=== PATIENT | female | born 1940 | race Caucasian/White ===

== ENCOUNTER 2023-03-22 05:43 | Observation (INO) ==
--- NOTE | 2023-02-20 08:53 | PAT Medication Instructions ---
Medication Instructions Date of Service February 20, 2023 Home Medications aspirin 81 mg tablet,delayed release 81 mg PO QAM atorvastatin 40 mg tablet 40 mg PO HS hydrochlorothiazide 50 mg tablet 50 mg PO QAM insulin degludec 100 unit/mL (3 mL) subcutaneous pen (Tresiba FlexTouch U-100 insulin) 12 unit subcut QPM insulin lispro 100 unit/mL subcutaneous pen 2 unit subcut BID liraglutide 0.6 mg/0.1 mL (18 mg/3 mL) subcutaneous pen injector (Victoza 2-Felipe) 1.8 mg subcut QAM lisinopril 2.5 mg tablet 2.5 mg PO QAM magnesium oxide 250 mg PO QAM metformin 500 mg tablet 1,000 mg PO BID pioglitazone 30 mg tablet 30 mg PO QAM potassium gluconate 595 mg (99 mg) tablet 595 mg PO QAM DO NOT take the morning of surgery hydrochlorothiazide 50 mg tablet 50 mg PO QAM insulin lispro 100 unit/mL subcutaneous pen 2 unit subcut BID liraglutide 0.6 mg/0.1 mL (18 mg/3 mL) subcutaneous pen injector (Victoza 2-Feilpe) 1.8 mg subcut QAM lisinopril 2.5 mg tablet 2.5 mg PO QAM magnesium oxide 250 mg PO QAM metformin 500 mg tablet 1,000 mg PO BID pioglitazone 30 mg tablet 30 mg PO QAM potassium gluconate 595 mg (99 mg) tablet 595 mg PO QAM Take morning of surgery With a small sip of water, OTHERWISE NOTHING TO EAT OR DRINK AFTER MIDNIGHT: aspirin 81 mg tablet,delayed release 81 mg PO QAM (unless directed otherwise by surgeon) Take evening before surgery atorvastatin 40 mg tablet 40 mg PO HS insulin degludec 100 unit/mL (3 mL) subcutaneous pen (Tresiba FlexTouch U-100 insulin) 12 unit subcut QPM insulin lispro 100 unit/mL subcutaneous pen 2 unit subcut BID metformin 500 mg tablet 1,000 mg PO BID Other Notes If you have any questions please call us at [phone] or [phone] or [phone] or [phone]
--- NOTE | 2023-02-20 13:50 | Anesthesiology Consultation ---
Date of Service February 20, 2023 Assessment & Plan (1) Encounter for pre-operative examination: - check BSG am DOS. - Case discussed in detail with Dr. Garcia who advised patient is acceptable to proceed with surgery as scheduled without further evaluation from his standpoint. - Outpatient joint assessment: Patient is currently scheduled for inpatient pathway. If re-evaluated and patient/surgeon requests outpatient pathway, patient is not recommended candidate for outpatient joint program from anest hesia standpoint. Chart Review Chart Review: Acceptable Risk for Surgery and Patient seen in Pre Admission Testing Teaching & Discussion Pre-Anesthesia Teaching/Discussion Notes: Instructed NPO after midnight before surgery, except medications with 15 cc of water. Medication instructions provided according to the PAT guidelines. History Surgery Operation Date: 03/22/23 11:05 Proposed Procedures p Right Total Knee Arthroplasty - Lazaro Livingston DO Height/Weight Height: 5 ft 3.5 in Weight: 101.4 kg Allergies Allergy/AdvReac Type Severity Reaction Status Date / Time cephalexin [From Keflex] Allergy Mild Rash Verified 02/17/23 15:50 Medications Home Medications Medication Instructions Recorded Confirmed Last Taken aspirin 81 mg tablet,delayed 81 mg PO QAM 02/17/23 02/17/23 Unknown release atorvastatin 40 mg tablet 40 mg PO HS 02/17/23 02/17/23 Unknown hydrochlorothiazide 50 mg tablet 50 mg PO QAM 02/17/23 02/17/23 Unknown insulin degludec 100 unit/mL (3 12 unit subcut QPM 02/17/23 02/17/23 Unknown mL) subcutaneous pen (Tresiba FlexTouch U-100 insulin) insulin lispro 100 unit/mL 2 unit subcut BID 02/17/23 02/17/23 Unknown subcutaneous pen liraglutide 0.6 mg/0.1 mL (18 mg/3 1.8 mg subcut QAM 02/17/23 02/17/23 Unknown mL) subcutaneous pen injector (Victoza 2-Felipe) lisinopril 2.5 mg tablet 2.5 mg PO QAM 02/17/23 02/17/23 Unknown magnesium oxide 250 mg PO QAM 02/17/23 02/17/23 Unknown metformin 500 mg tablet 1,000 mg PO BID 02/17/23 02/17/23 Unknown pioglitazone 30 mg tablet 30 mg PO QAM 02/17/23 02/17/23 Unknown potassium gluconate 595 mg (99 mg) 595 mg PO QAM 02/17/23 02/17/23 Unknown tablet Past Medical History Medical History (Updated 02/20/23 @ 13:48 by Shameka Bustamante PA-C) Diabetes mellitus, type 2 IDDM GERD (gastroesophageal reflux disease) rare, diet related History of kidney stones 10 yrs ago Hyperlipidemia Hypertension controlled, stable per pt Irregular heart beat heart racing at times noted-denies lightheadedness/dizziness; ongoing x several yrs, notes previous cardiology work-up and was d/c by cardiology Peripheral neuropathy feet Patient denies h/o stroke, seizures, heart attack, heart failure, blood clots/DVTs or blood transfusions. Exercise / Class Metabolic Activity III < 4 Walking/Shop/Light housework (denies chest discomfort or shortness of breath with usual activities) Past Family History Family History (Updated 02/17/23 @ 16:02 by Della Barrera RN) Other No family history of adverse response to anesthesia Past Surgical History Surgical History (Updated 02/17/23 @ 16:02 by Della Barrera RN) History of appendectomy History of arthroscopy rt shoulder rt hip History of cataract surgery rt/left History of cholecystectomy History of colonoscopy History of cystoscopy History of esophagogastroduodenoscopy (EGD) History of lithotripsy History of removal of ovarian cyst History of tonsillectomy and adenoidectomy History of tooth extraction Past Anesthesia History No Hx of Anesthesia Complications and No Family Hx of Anesthesia Complications History of PONV No Hx of PONV and No Hx of Motion Sickness Social History Smoking Status: Never smoker Do You Dip or Chew Tobacco: No Hx Alcohol Use: No substance use type: does not use Review of Systems Snoring, denies witnessed apneas. Patient denies chest pain, shortness of breath, dyspnea on exertion, fever, chills, cough, wheezing, or palpitations. Physical Exam Vital Signs Vitals BP 107/71 P 83 TEMP 97.7 SP02 95% on RA RESP 18 Physical Patient resting comfortably in chair in no acute distress, alert and oriented, responding appropriately throughout visit Full cervical extension range of motion without pain TMD 3.5 finger breadths Mallampati Score 2 Dentition: intact, denies chipped or loose teeth, caps/crowns, implants or bridges Lungs: normal respiratory effort. Good air movement, clear throughout to auscultation, no adventitious breath sounds Cardiac: regular rate and rhythm, no murmurs noted Carotid arteries: negative bruit bilat Lab Results Anesthesia Preop Results Results Anesthesia Widget: WBC 9.09 K/ul (4.8-10.8) 02/20/23 Hgb 11.7 g/dl (12.0-16.0) L 02/20/23 Hct 36.1 % (37.0-47.0) L 02/20/23 Plt 258 K/uL (130-400) 02/20/23 PT 11.0 Seconds (9.0-12.0) 02/20/23 PTT 27.2 Seconds (21.0-31.0) 02/20/23 INR 1.0 (0.9-1.1) 02/20/23 Urine Color Yellow 02/20/23 Urine Appearance Clear (Clear) 02/20/23 Urine pH 5.0 (4.5-7.5) 02/20/23 Urine Specific [place] 1.023 (1.000-1.030) 02/20/23 Urine Protein Negative (Negative) 02/20/23 Urine Glucose (UA) Negative (Negative) 02/20/23 Urine Ketones Trace (Negative) H 02/20/23 Urine Blood Negative (Negative) 02/20/23 Urine Nitrite Negative (Negative) 02/20/23 Urine Bilirubin Negative (Negative) 02/20/23 Urine Urobilinogen Negative (Negative) 02/20/23 Urine Leukocyte Esterase 2+ (Negative) H 02/20/23 Urine WBC (Auto) >30 /hpf (0-5) H 02/20/23 Urine RBC (Auto) 5-10 /hpf (0-4) H 02/20/23 Urine Hyaline Casts (Auto) 1-5 /lpf (0-5) 02/20/23 Urine Epithelial Cells (Auto) >30 /lpf (0-5) H 02/20/23 Urine Bacteria (Auto) Negative (Negative) 02/20/23 Blood Type A Positive 02/20/23 Antibody Screen NEGATIVE 02/20/23 Testing Laboratory Results Surgeon's office notified of abnormal UA. Electrocardiogram Date: 02/20/23 Sinus rhythm with 1st degree AV block, rate 84 bpm Chest X-Ray Date: 02/20/23 No acute chest disease
--- NOTE | 2023-03-08 09:44 | History & Physical Report ---
Date of Service March 08, 2023 date of surgery: 03/22/23 Procedure: Right Total Knee Arthroplasty Surgeon: Lazaro Livingston Assessment & Plan (1) Arthritis of right knee: Plan: Further care discussed with patient and at this point in time has failed conservative measures and would like to proceed with a right total knee replacement. Plan on discharge will be home with home health physical therapy. DVT prophylaxiswith TEDs, SCDs and will also place on aspirin 81 mg p.o. b.i.d. for a month postop. Patient will have follow up appointment in our office two weeks post op for staple/suture removal and re-evaluation. Patient otherwise has no other questions or concerns. The risks and benefits have been discussed including, but not limited to, risk of infection, nerve injury, stiffness, loss of motion, failure to improve, etc. Reasonable outcomes and options of treatment were discussed. An explanation of appropriate alternatives to the procedure that may be advantageous were discussed and their risks and benefits, as well as the risks and benefits of not proceeding with treatment. I offered to answer any additional inquiries concerning the treatment involved. All the patient's questions were answered. The patient is agreeable, understanding of the treatment plan and alternatives, and wishes to proceed with the treatment plan. History of Present Illness Chief Complaint: Right knee pain Primary Care Provider: NO PCP Roopa is a pleasant 82-year-old female who presented for preop evaluation prior to upcoming right total knee arthroplasty. She has had pain in his knee for over 10 years now which is gradually worsened and is now affecting her daily activities. She undergone previous cortisone injection as well as viscosupplementation without any relief. She tried manager ent brace as well as physical therapy. Rated her current pain is 7 out of 10. This point time is failed conservative measures like to proceed with right total knee replacement Allergies Allergy/AdvReac Type Severity Reaction Status Date / Time cephalexin [From Keflex] Allergy Mild Rash Verified 02/17/23 15:50 Home Medications Medication Instructions Recorded Confirmed Type aspirin 81 mg tablet,delayed 81 mg PO QAM 02/17/23 02/17/23 History release atorvastatin 40 mg tablet 40 mg PO HS 02/17/23 02/17/23 History hydrochlorothiazide 50 mg tablet 50 mg PO QAM 02/17/23 02/17/23 History insulin degludec 100 unit/mL (3 12 unit subcut QPM 02/17/23 02/17/23 History mL) subcutaneous pen (Tresiba FlexTouch U-100 insulin) insulin lispro 100 unit/mL 2 unit subcut BID 02/17/23 02/17/23 History subcutaneous pen liraglutide 0.6 mg/0.1 mL (18 mg/3 1.8 mg subcut QAM 02/17/23 02/17/23 History mL) subcutaneous pen injector (Victoza 2-Felipe) lisinopril 2.5 mg tablet 2.5 mg PO QAM 02/17/23 02/17/23 History magnesium oxide 250 mg PO QAM 02/17/23 02/17/23 History metformin 500 mg tablet 1,000 mg PO BID 02/17/23 02/17/23 History pioglitazone 30 mg tablet 30 mg PO QAM 02/17/23 02/17/23 History potassium gluconate 595 mg (99 mg) 595 mg PO QAM 02/17/23 02/17/23 History tablet Past Med/Surg History Medical History Diabetes mellitus, type 2 IDDM GERD (gastroesophageal reflux disease) rare, diet related History of kidney stones 10 yrs ago Hyperlipidemia Hypertension controlled, stable per pt Irregular heart beat heart racing at times noted-denies lightheadedness/dizziness; ongoing x several yrs, notes previous cardiology work-up and was d/c by cardiology Peripheral neuropathy feet Surgical History History of appendectomy History of arthroscopy rt shoulder rt hip History of cataract surgery rt/left History of cholecystectomy History of colonoscopy History of cystoscopy History of esophagogastroduodenoscopy (EGD) History of lithotripsy History of removal of ovarian cyst History of tonsillectomy and adenoidectomy History of tooth extraction Family History Other No family history of adverse response to anesthesia Social History Smoking Status: Never smoker Second Hand Exposure: No; Do You Dip or Chew Tobacco: No; Hx Alcohol Use: No Preferred Language: Icelandic Regulatory Administrator Required: No Beliefs That Will Affect Care: None Current Living Situation: Spouse Feels Safe at Home: Yes Assistive Devices: Glasses Review of Systems Review of Systems: All systems reviewed & are unremarkable except as noted in HPI & below Constitutional: no fever, no chills and no sweats Respiratory: no cough and no dyspnea Cardiovascular: no chest pain, no dyspnea and no orthopnea Gastrointestinal: no abdominal pain, no nausea and no vomiting Musculoskeletal: as per Subjective / HPI Physical Exam Physical Exam: HT 5ft 3.5in WT: 101.4kg Constitutional: WD/WN, vitals as above no acute distress Respiratory: normal respiratory effort, lungs clear to auscultation no respiratory distress, no labored breathing and does not use accessory muscles Cardiovascular: RRR, no murmur, no edema Gastrointestinal (Abdomen): normal bowel sounds, soft, nontender, no hepatosplenomegaly Musculoskeletal: Knee: + knee abnormal to inspection (RIGHT KNEE: ), + effusion (+1 effusion), + limited ROM of knee (ROM 0/3/110), + knee ROM with crepitation, + joint line tenderness (medial joint line) and + Rupal's sign positive; no deformity, no skin erythema, no ecchymosis, no valgus laxity, no varus laxity, anterior drawer test negative, Saúl's sign negative and pivot shift test negative Results & Data Results & Data Diagnostic Findings Right Knee X-ray: Right knee series showing advanced degenerative changes to the right knee, narrowing of the medial compartment and patello-femoral joint with patellar spurring noted, findings showing joint space narrowing of the medial compartment and patello-femoral joint, osteophyte formation and subchondral sclerosis noted. overall varus alignment. no acute bony pathology noted.
[2023-03-22] MEDS ORDERED: LR 60ML/HR IV SCH (06:00)
[2023-03-22] MEDS ORDERED: ACETAMINOPHEN 500 MG TAB PO SCH (06:00)
[2023-03-22] MEDS ORDERED: ROPIVACAINE 0.5% HCL/PF 150 MG, BUPIVACAINE 0.75% MPF 20 ML, EPINEPHrine 30MG/30ML (OR ... INSTIL SCH (06:00)
[2023-03-22] MEDS ORDERED: METOCLOPRAMIDE HCL 10 MG TABLET PO SCH (06:00)
[2023-03-22] MEDS ORDERED: FAMOTIDINE 20 MG TAB PO SCH (06:00)
[2023-03-22] MEDS ORDERED: TRANEXAMIC ACID 1,000 MG **IV Intra-op IV SCH (06:00)
[2023-03-22] MEDS ORDERED: TRANEXAMIC ACID 1,000 MG **IV Pre-op IV SCH (06:00)
[2023-03-22] MEDS ORDERED: GABAPENTIN 600 MG DOSE PO SCH (06:00)
[2023-03-22] MEDS ORDERED: LR 500ML BOLUS, THEN 15ML/HR IV SCH (06:00)
[2023-03-22] MEDS ORDERED: CeleBREX 200 MG CAP PO SCH (06:00)
[2023-03-22] MEDS ORDERED: VANCOMYCIN HCL 1,500 MG in SODIUM CHLORIDE 0.9% 500 ML IV SCH ×2 (06:00→20:00)
[2023-03-22] MEDS ORDERED: BUPIVACAINE 0.25% PF 30 ML VIAL ONE (06:30)
[2023-03-22] MEDS ORDERED: BUPIVACAINE 0.5 % 5 MG/1 ML PF 10ML VIAL ONE (06:30)
[2023-03-22] MEDS ORDERED: ATROPINE SULFATE 0.1 MG/ML 10ML SYR IV PRN (06:36)
[2023-03-22] MEDS ORDERED: ePHEDrine sulfate 50 MG/ML AMP IV PRN (06:36)
[2023-03-22] MEDS ORDERED: fentaNYL citrate PF 100 MCG/2 ML VIAL IV PRN (06:36)
[2023-03-22] MEDS ORDERED: ONDANSETRON INJ 2 MG/ML 2 ML VIAL IV PRN ×2 (06:36→12:28)
[2023-03-22] MEDS ORDERED: fentaNYL citrate PF 100 MCG/2 ML VIAL ONE (06:38)
[2023-03-22] MEDS ORDERED: PROPOFOL IV EMULSION 10 MG/ML 20 ML VIAL IV ONE (06:38)
[2023-03-22] MEDS ORDERED: MIDAZOLAM HCL 1 MG/ML 2ML VIAL ONE (06:38)
[2023-03-22] MEDS ORDERED: ORTHO JOINT ANESTHETIC ONE (07:06)
--- NOTE | 2023-03-22 07:17 | History & Physical Bridge Note ---
Date of Service March 22, 2023 History & Physical Bridge Note I have examined the patient, rPatient with complaints of DJD left knee observed via x-ray and clinical examination we will plan for intra-articular injection Marcaine lidocaine and Depo-Medrol 80 mg left knee at the time of her right knee replacementeviewed the History & Physical and in the interval since the performance of the History & Physical I have noted the following changes of clinical significance:
[2023-03-22] MEDS ORDERED: BUPIVACAINE 0.5 % 5 MG/1 ML MPF 30ML VIAL ONE (07:42)
[2023-03-22] MEDS ORDERED: LIDOCAINE 1% LOCAL 20 ML VIAL ONE (07:42)
[2023-03-22] MEDS ORDERED: methylPREDNISolone acetate 80 MG/ML VIAL ONE (07:43)
[2023-03-22] MEDS ORDERED: ONDANSETRON INJ 2 MG/ML 2 ML VIAL ONE (08:19)
--- NOTE | 2023-03-22 08:58 | Operative Report ---
Post Operative Report Pre & Post Diagnosis Operation Date: 03/22/23 07:15 Pre-Op Diagnosis: Right Knee Osteoarthritis Post-Op Diagnosis: Right Knee Osteoarthritis I identified the patient and participated in the time-out.: Yes Procedure Operation Date: 03/22/23 07:15 Actual Procedures p Right Total Knee Arthroplasty(Right)Utilizing [employer] 2 patient-matched total knee arthroplasty size femur 6 tibia 4 patella 32 poly 9 arpit Livingston DO Surgeon Lazaro Livingston DO [employer] Darnell GAY Estimated Blood Loss 80 Findings Consistent with Post-Op Diagnosis Patient presents with severe end-stage tricompartmental DJD right knee nonresponse to conservative management with eburnated [id number] varus alignment 10 degree flexion contracture subchondral cystic changes marginal osteophytes Specimens Bone and cartilage Drains Medium bore Hemovac Anesthesia Type MAC Spinal Regional Complications none Disposition Accompanied Patient To Recovery: No Disposition: Recovery Room Indications Patient presents with severe end-stage tricompartmental DJD failed attempted conservative management with physical therapy anti-inflammatories relative rest activity modification corticosteroid injection viscosupplementation Description of Procedure After proper prepping and draping of the Right lower extremity anterior midline incision was made over the region of the extensor extensor mechanism after meticulous hemostasis was obtained and maintained in subcutaneous tissues a medial parapatellar incision was made Patient had a venous tourniquet had subcutaneous bleeding about 80 cc during the case and Aquamantys was used the tourniquet was deflated and reinflated and still continued with some mild oozing which stopped during the caseThe patella was subluxed lateralward the medial lateral gutter were cleaned from any hypertrophic synovitis and scar tissue of the distal femoral block was placed and the distal femoral osteotomy cut was made subsequently the chamfers anterior and posterior osteotomy cuts were made utilizing the 4-in-1 block the tibia was subsequently subluxed anteriorward medial and ateral meniscal remnants were excised in their entirety remnants of the anterior and posterior cruciate ligaments were excised in their entirety excellent exposure of the proximal tibia was obtained the tibial osteotomy guide was placed on the proximal tibial osteotomy cut was made once again the knee was irrigated with copious amounts of sterile saline solution the patella was subsequently everted lateralward thickened scar tissue around the patella was removed the patella was subsequently cut utilizing a freehand technique and was drilled prepared for final preparation and placement of patella socially flexion-extension gaps were checked and the equal and symmetric trials were placed to the appropriate femoral and tibial trials with poly-spacer being placed for equal flexion and extension gaps and full range of motion including extension to 0 and flexion to 140 the trial components after having been taken to recovery range of motion was subsequently removed meticulous hemostasis was obtained and maintained subsequently a knee block injection of joint cocktail including ropivacaine 0.5% 150 mg. Bupivacaine 0.5% epinephrine 1-200,030 mL's toradol 30 mg dexamethasone 4 mg ketamine 10 mg clonidine 100 micrograms normal saline solution 30 mg was infiltrated into the soft tissues of the posterior knee medial lateral gutters and periosteal synovium special attention was paid to protect neurovascular structures at all times subsequently trial components having been removed the knee was irrigated with sterile saline solution. debris was removed the proximal tibia was subsequently prepared and was made ready for the placement of the tibial component tibial component was also cemented and tamped into position the femoral component was subsequently placed and cemented in the position the patellar component was subsequently cemented in position because hemostasis once again obtained and maintained wound having been thoroughly irrigated with debridement and debridement lavage was performed as well as a medial parapatellar incision closed with #1 Vicryl in interrupted fashion subcutaneous was closed with #2 Vicryl skin was closed with skin clips. PA-C was necessary for prepping and drapping as well as wound closure of deep fascia Sub cutaneous tissue and skin and was necessary for the case. A sterile compressive dressing was placed patient was taken to recovery in stable condition of report dictated by Miki I attest to the content of the Intraoperative Record and any orders documented therein. Any exceptions are noted below.Due to the complex nature of the procedure, the entire surgery was performed with the operational assistance of Darnell GAY. The physician assistant primary care, under direct supervision, was involved in the actual performance of all aspects of the surgical procedure including hemostasis, tissue retraction and incision, instrument management, patient positioning, and wound closure. I attest to the content of the Intraoperative Record and any orders documented therein. Any exceptions are noted below.
--- NOTE | 2023-03-22 09:07 | Operative Report ---
Post Operative Report Pre & Post Diagnosis Operation Date: 03/22/23 07:15 Pre-Op Diagnosis: Right Knee Osteoarthritis Post-Op Diagnosis: Right Knee Osteoarthritis I identified the patient and participated in the time-out.: Yes Procedure Operation Date: 03/22/23 07:15 Actual Procedures p Right Total Knee Arthroplasty(Right) - Lazaro Livingston DO Surgeon Lazaro Livingston DO [employer] Setter Darnell GAY Estimated Blood Loss 80 Findings Consistent with Post-Op Diagnosis Specimens None none Description of Procedure Patient also had DJD left knee injection of 80 mg Depo-Medrol 2 cc 1% plain lidocaine 2 cc of quarter percent plain Marcaine was injected under sterile conditions into the left knee joint for osteoarthritis I attest to the content of the Intraoperative Record and any orders documented therein. Any exceptions are noted below.
--- NOTE | 2023-03-22 10:18 | XRay Report ---
TWO VIEWS RIGHT KNEE CLINICAL HISTORY: Postoperative examination. FINDINGS: AP and crosstable lateral portable views of the right knee are obtained. A right knee arthr oplasty is in near anatomic alignment. There has been undersurface remodeling of the patella. No acut e fracture is seen. There are expected postoperative changes around the knee including skin clips, a surgical drain, soft tissue edema, and subcutaneous gas. IMPRESSION: Expected postoperative changes status post right knee arthroplasty. No acute fracture is seen. ACT 112: Negative or not required by law. Electronically signed by: Ted Olguin M.D. 03/22/2023 10:17 AM
[2023-03-22] MEDS ORDERED: MAGNESIUM HYDROXIDE SUSP 30 ML UDC PO PRN (12:28)
[2023-03-22] MEDS ORDERED: bisacodyL 10 MG SUPP PR PRN (12:28)
[2023-03-22] MEDS ORDERED: PHARMACY GLYCEMIC MGMT CONSULT PRN (12:28)
[2023-03-22] MEDS ORDERED: HYDROmorphone INJ 0.5 MG/0.5 ML SYR IV PRN (12:28)
[2023-03-22] MEDS ORDERED: oxyCODONE HCL IR 5 MG TAB (IMMEDIATE RELEASE) PO PRN (12:28)
[2023-03-22] MEDS ORDERED: diphenhydrAMINE 50 MG/ML VIAL IV PRN (12:28)
[2023-03-22] MEDS ORDERED: VANCOMYCIN CONSULT ACTIVE PRN (12:28)
[2023-03-22] MEDS ORDERED: NALOXONE HCL 0.4 MG/1 ML VIAL/CARP IV PRN (12:28)
[2023-03-22] MEDS: SODIUM CHLORIDE 0.9% 1,000 ML IV SCH (13:26)
[2023-03-22] MEDS: ACETAMINOPHEN 500 MG TAB PO SCH ×2 (13:27→21:05)
--- NOTE | 2023-03-22 13:52 | Anesthesiology Progress Note ---
Date of Service March 22, 2023 Anesthesia Post Procedure Vital Signs Vital Signs: Temp Pulse Pulse Resp BP BP Pulse Ox 03/22/23 12:30 03/22/23 13:23 36.7 C 91 H 16 110/66 98 03/22/23 12:20 36.4 C L 90 16 99/63 L 98 03/22/23 12:50 89 18 109/70 100 03/22/23 11:50 84 12 107/53 L 99 03/22/23 11:35 83 18 121/58 L 94 03/22/23 11:20 36.4 C L 88 13 107/50 L 92 03/22/23 11:05 89 20 115/54 L 94 03/22/23 10:50 36.0 C L 89 13 116/74 92 03/22/23 10:40 83 15 130/77 94 03/22/23 10:30 84 12 116/52 L 94 03/22/23 10:20 86 17 103/59 L 92 03/22/23 10:10 84 13 121/58 L 95 03/22/23 10:00 82 12 117/58 L 92 03/22/23 09:50 80 11 L 114/54 L 96 03/22/23 09:44 36.0 C L 84 18 113/54 L 97 03/22/23 06:30 36.6 C 90 18 136/78 98 O2 Del Method O2 Flow Rate 03/22/23 12:30 Nasal Cannula 2 03/22/23 13:23 Nasal Cannula 1 03/22/23 12:20 Nasal Cannula 2 03/22/23 12:50 Nasal Cannula 2 03/22/23 11:50 Nasal Cannula 2 03/22/23 11:35 Nasal Cannula 2 03/22/23 11:20 Room Air 03/22/23 11:05 Room Air 03/22/23 10:50 Room Air 03/22/23 10:40 Room Air 03/22/23 10:30 Room Air 03/22/23 10:20 Room Air 03/22/23 10:10 Room Air 03/22/23 10:00 Room Air 03/22/23 09:50 Room Air 03/22/23 09:44 Room Air 03/22/23 06:30 Room Air Transfer of Care Handoff Completed per policy Notes Mental Status: alert / awake / arousable and participated in evaluation Patient Amnestic to Procedure: Yes Nausea / Vomiting: adequately controlled Pain: adequately controlled Airway Patency, RR, SpO2: stable & adequate BP & HR: stable & adequate Hydration State: stable & adequate Neuraxial Anesthesia: was administered and sensory block is resolving Anesthetic Complications: no major complications apparent and Pt Satisfied with anesthetic care
[2023-03-22] MEDS ORDERED: NovoLIN-N (NPH) PER UNIT CHARGE SQ ONE (14:00)
[2023-03-22] MEDS ORDERED: GLUCOSE 10 TAB/TUBE PO PRN (14:00)
[2023-03-22] MEDS ORDERED: CARBOHYDRATES FOR HYPOGLYCEMIA PO PRN (14:00)
[2023-03-22] MEDS ORDERED: GLUCAGON FOR INJ 1 MG VIAL IM PRN (14:00)
[2023-03-22] MEDS ORDERED: DEXTROSE 50% 50 ML SYRINGE IV PRN (14:00)
[2023-03-22] MEDS ORDERED: GLUCOSE 40% GEL 15 GM TUBE PO PRN (14:00)
[2023-03-22] MEDS: INSULIN ASPART PER UNIT CHARGE SC SCH ×3 (14:17→21:14)
--- NOTE | 2023-03-22 14:35 | Hospitalist Consultation ---
Date of Consultation March 22, 2023 Assessment & Plan (1) Status post total knee replacement: VTE/Bowel/Pain management per primary orthopedic team (2) Hypertension: Hold lisinopril/HCTZ given current BP (3) Diabetes mellitus, type 2: Hemoglobin A1C 7.2 in February per patient recollection. No pre-op clearance uploaded. HbA1C with AM labs Pharmacy consulted for glycemic control while inpatient Hold home regimen of metformin, Tresiba 12 units QPM, Humalog 2units BID, Victoza 1.8mg SQ daily and Actos. did not take anything this morning. Do not anticipate diabetes medication changes on discharge (4) Hyperlipidemia: Continue atorvastatin No history of [place] or stroke History of Present Illness Reason for Consultation: post op medical management Attending Physician: Lazaro Livingston DO History of Present Illness Roopa Greenfield is an 82 year old female POD#0 right total knee arthroplasty. Estimated blood loss 80ml. No questions or concerns from patient post operatively. No dizziness. Doxycycline 100mg PO BID 11/15, no longer taking - removed from medrec. She is unclear on her BP medications or what she took this morning. Allergies Allergy/AdvReac Type Severity Reaction Status Date / Time cephalexin [From Keflex] Allergy Mild Rash Verified 03/22/23 06:06 Home Medications Medication Instructions Recorded Confirmed Type aspirin 81 mg tablet,delayed 81 mg PO QAM 02/17/23 03/22/23 History release atorvastatin 40 mg tablet (Lipitor) 40 mg PO HS 02/17/23 03/22/23 History hydrochlorothiazide 50 mg tablet 50 mg PO QAM 02/17/23 03/22/23 History insulin degludec 100 unit/mL (3 12 unit subcut QPM 02/17/23 03/22/23 History mL) subcutaneous pen (Tresiba FlexTouch U-100 insulin) insulin lispro 100 unit/mL 2 unit subcut BID 02/17/23 03/22/23 History subcutaneous pen liraglutide 0.6 mg/0.1 mL (18 mg/3 1.8 mg subcut QAM 02/17/23 03/22/23 History mL) subcutaneous pen injector (Victoza 2-Felipe) lisinopril 2.5 mg tablet 2.5 mg PO QAM 02/17/23 03/22/23 History magnesium oxide 250 mg PO QAM 02/17/23 03/22/23 History metformin 500 mg tablet 1,000 mg PO BID 02/17/23 03/22/23 History pioglitazone 30 mg tablet (Actos) 30 mg PO QAM 02/17/23 03/22/23 History potassium gluconate 595 mg (99 mg) 595 mg PO QAM 02/17/23 03/22/23 History tablet acetaminophen 325 mg tablet 325 mg PO QID PRN Pain 03/22/23 03/22/23 History (Tylenol) acetaminophen 500 mg tablet 1,000 mg PO Q8 14 days #84 tabs 03/22/23 Rx (Tylenol Extra Strength) aspirin 81 mg tablet,delayed 81 mg PO BID 30 days #60 tabs 03/22/23 Rx release polyethylene glycol 3350 17 gram 17 g PO DAILY PRN constipation #5 03/22/23 Rx oral powder packet (Miralax) ea Patient History Medical History (Updated 03/22/23 @ 14:29 by Nirmal Jose MD) Diabetes mellitus, type 2 IDDM GERD (gastroesophageal reflux disease) rare, diet related History of kidney stones 10 yrs ago Hyperlipidemia Hypertension controlled, stable per pt Irregular heart beat heart racing at times noted-denies lightheadedness/dizziness; ongoing x several yrs, notes previous cardiology work-up and was d/c by cardiology Peripheral neuropathy feet Surgical History (Updated 03/22/23 @ 14:32 by Nirmal Jose MD) History of appendectomy History of arthroscopy rt shoulder rt hip History of cataract surgery rt/left History of cholecystectomy History of colonoscopy History of cystoscopy History of esophagogastroduodenoscopy (EGD) History of lithotripsy History of removal of ovarian cyst History of tonsillectomy and adenoidectomy History of tooth extraction Family History Other No family history of adverse response to anesthesia Social History Smoking Status: Never smoker Second Hand Exposure: No; Do You Dip or Chew Tobacco: No; Hx Alcohol Use: No Preferred Language: Frisian [place] Hand Required: No Beliefs That Will Affect Care: None Current Living Situation: Spouse Feels Safe at Home: Yes Safety Concerns: Feels Safe At This Time Assistive Devices: Glasses Review of Systems Review of Systems: All systems reviewed & are unremarkable except as noted in HPI & below Physical Exam Constitutional: WD/WN, vitals as above ENMT: external ear and nose normal, oropharynx normal Respiratory: normal respiratory effort, lungs clear to auscultation Cardiovascular: RRR, no murmur, no edema Gastrointestinal (Abdomen): normal bowel sounds, soft, nontender, no hepatosplenomegaly Musculoskeletal: NV intact distal to operation site Neurologic: awake; not confused Psychiatric: A+Ox3, euthymic affect Results & Data Results & Data Vital Signs (Past 12 Hours) Vital Signs Temp Pulse Pulse Resp BP BP Pulse Ox 03/22/23 12:30 03/22/23 14:18 36.4 C L 89 16 112/70 97 03/22/23 13: 36.7 C 91 H 16 110/66 98 03/22/23 12:20 36.4 C L 90 16 99/63 L 98 03/22/23 12:50 89 18 109/70 100 03/22/23 11:50 84 12 107/53 L 99 03/22/23 11:35 83 18 121/58 L 94 03/22/23 11:20 36.4 C L 88 13 107/50 L 92 03/22/23 11:05 89 20 115/54 L 94 03/22/23 10:50 36.0 C L 89 13 116/74 92 03/22/23 10:40 83 15 130/77 94 03/22/23 10:30 84 12 116/52 L 94 03/22/23 10:20 86 17 103/59 L 92 03/22/23 10:10 84 13 121/58 L 95 03/22/23 10:00 82 12 117/58 L 92 03/22/23 09:50 80 11 L 114/54 L 96 03/22/23 09:44 36.0 C L 84 18 113/54 L 97 03/22/23 06:30 36.6 C 90 18 136/78 98 O2 Del Method O2 Flow Rate 03/22/23 12:30 Nasal Cannula 2 03/22/23 14:18 Nasal Cannula 1 03/22/23 13:23 Nasal Cannula 1 03/22/23 12:20 Nasal Cannula 2 03/22/23 12:50 Nasal Cannula 2 03/22/23 11:50 Nasal Cannula 2 03/22/23 11:35 Nasal Cannula 2 03/22/23 11:20 Room Air 03/22/23 11:05 Room Air 03/22/23 10:50 Room Air 03/22/23 10:40 Room Air 03/22/23 10:30 Room Air 03/22/23 10:20 Room Air 03/22/23 10:10 Room Air 03/22/23 10:00 Room Air 03/22/23 09:50 Room Air 03/22/23 09:44 Room Air 03/22/23 06:30 Room Air Laboratory Results No pre-op CMP/BMP in EHR therefore will take now PG Care Time/CCT Total # of Minutes Spent Total Time Spent with Patient: Total time spent is greater than 50% in coordination of care (as documented) at patient's floor/unit and/or counseling patient: Coding Level of Care Code 97728 IN/OBS CONSULT LVL 4,60M Diagnoses Status post total knee replacement Z96.659 Hypertension I10 Diabetes mellitus, type 2 E11.9 Hyperlipidemia E78.5
--- NOTE | 2023-03-22 14:36 | Pharmacy Report ---
Pharmacy Glycemic Short Note 2 - Date of Service March 22, 2023 - Glycemic Short BSG Results (Last 24 hours): 03/22/23 03/22/23 03/22/23 06:29 09:47 12:27 POC Glucose 107 H 164 H 179 H OUTPATIENT ANTIDIABETIC REGIMEN: * metformin 1000 mg PO BIDM * Actos 30 mg PO daily * HbA1C ordered ASSESSMENT: * Ms Greenfield is an 82 y/o F with a PMH of T2DM who presents for RTKA plus Depo Medrol injection in L knee. * Patient's preop BSG was 107 mg/dL and postop was 179 mg/dL. * Due to steroids, give NPH 30 units SQ x 1. Due to IA nature of injection, steroid hyperglycemia course may be prolonged. * Novolog weight based stress of 2. PLAN FOR INPATIENT GLYCEMIC CONTROL: * Hold outpatient oral diabetes medications * Basal insulin * NPH 30 units SQ x 1 with subsequent dosing determined by blood sugars * Bolus insulin * NovoLog per scale ACHS or Q6hrs while NPO * Goal Range: Low 110 mg/dL - High 140 mg/dL * Correction Factor: 20 mg/dL/unit * Nutritional / Prandial insulin per carb ratio of 1 unit per 7 grams CHO consumed
[2023-03-22 16:48] LABS: Mean Corpuscular Hemoglobin 28.5 pg (25.0-34.0); Mean Corpuscular Hgb Conc 32.3 g/dL (32.0-36.0); Mean Corpuscular Volume 88.3 fL (80.0-100.0); Mean Platelet Volume 10.3 fL (9.4-12.4); Platelet Count 200 K/uL (130-400); RDW Coefficient of Variation 13.8 % (11.5-14.5); RDW Standard Deviation 44.2 fL (36.4-46.3); Red Blood Count 3.51 M/uL (4.20-5.40); White Blood Count 11.46 K/ul (4.8-10.8)
[2023-03-22] MEDS ORDERED: metFORMIN HCL 500 MG TAB PO SCH (17:00)
[2023-03-22 17:02] LABS: Albumin Globulin Ratio 1.3 (0.9-2); Albumin Level 3.4 gm/dl (3.4-5.0); BUN Creatinine Ratio 29.2 (10-20); Bilirubin,Total 0.7 mg/dl (0.2-1.0); Calcium 8.5 mg/dl (8.6-10.3); Creatinine Clr Calc Pharmacy 52.2 ml/min; Est GFR (African American) 63.8 ml/min; Est GFR (Non-African American) 55.1 ml/min; Globulin 2.6 gm/dl (2.5-4.0); Potassium 4.9 mmol/L (3.5-5.1)
[2023-03-22 17:37] LABS: Basophils # (auto) 0.03 K/uL (0.00-0.20); Basophils % (auto) 0.3 %; Immature Granulocytes # (auto) 0.06 K/uL (0.01-0.20); Immature Granulocytes % (auto) 0.5 %; Lymphocytes # (auto) 0.52 K/uL (1.20-3.40); Lymphocytes % (auto) 4.5 %; Monocytes # (auto) 0.14 K/uL (0.11-0.59); Monocytes % (auto) 1.2 %; Neutrophils # (auto) 10.71 K/uL (1.40-6.50); Neutrophils % (auto) 93.5 %
[2023-03-22] MEDS ORDERED: SODIUM CHLORIDE 0.9% 1,000 ML IV ONE (19:48)
[2023-03-22] MEDS ORDERED: ATORVASTATIN 40 MG TAB PO SCH (21:00)
[2023-03-22] MEDS ORDERED: SENNA 8.6 MG TAB PO SCH (21:00)
[2023-03-22] MEDS: DOCUSATE SODIUM 100 MG CAP PO SCH (21:06)
[2023-03-22] MEDS: ASPIRIN 81 MG ECTAB PO SCH (21:06)
[2023-03-23] MEDS: SODIUM CHLORIDE 0.9% 1,000 ML IV SCH (01:47)
[2023-03-23] MEDS: ACETAMINOPHEN 500 MG TAB PO SCH (05:27)
[2023-03-23 06:44] LABS: Hematocrit (blood only) 28.5 % (37.0-47.0); Hemoglobin 9.6 g/dl (12.0-16.0); Mean Corpuscular Hemoglobin 29.4 pg (25.0-34.0); Mean Corpuscular Hgb Conc 33.7 g/dL (32.0-36.0); Mean Corpuscular Volume 87.2 fL (80.0-100.0); Mean Platelet Volume 10.6 fL (9.4-12.4); Platelet Count 213 K/uL (130-400); RDW Coefficient of Variation 13.8 % (11.5-14.5); Red Blood Count 3.27 M/uL (4.20-5.40); White Blood Count 19.58 K/ul (4.8-10.8)
[2023-03-23 07:11] LABS: BUN Creatinine Ratio 35.6 (10-20); Calcium 7.7 mg/dl (8.6-10.3); Creatinine Clr Calc Pharmacy 55.6 ml/min; Est GFR (Non-African American) 59.5 ml/min; Potassium 4.7 mmol/L (3.5-5.1)
[2023-03-23 07:18] LABS: Estimated Average Glucose 166 mg/dl; Hemoglobin A1C 7.4 % (4.5-5.6)
[2023-03-23] MEDS: ASPIRIN 81 MG ECTAB PO SCH (08:07)
[2023-03-23] MEDS: DOCUSATE SODIUM 100 MG CAP PO SCH (08:07)
[2023-03-23] MEDS: INSULIN ASPART PER UNIT CHARGE SC SCH ×2 (08:11→12:24)
[2023-03-23] MEDS ORDERED: MAGNESIUM OXIDE 400 MG TAB PO SCH (09:00)
[2023-03-23] MEDS ORDERED: LANTUS PER UNIT CHARGE SC ONE (09:00)
[2023-03-23] MEDS ORDERED: lisinopril 2.5 MG TAB PO SCH (09:00)
[2023-03-23] MEDS ORDERED: NON-FORMULARY MEDICATION (Pioglitazone [Actos] 30 mg Tablet) PO SCH (09:00)
[2023-03-23] MEDS ORDERED: hydroCHLOROthiazide 25 MG TAB PO SCH (09:00)
[2023-03-23] MEDS ORDERED: MULTIVITAMIN TAB PO SCH (09:00)
[2023-03-23] MEDS ORDERED: POTASSIUM CHLORIDE CRTAB 20 MEQ TABCR PO SCH (09:00)
--- NOTE | 2023-03-23 09:51 | Hospitalist Progress Note ---
Date of Service March 23, 2023 Assessment & Plan (1) Status post total knee replacement: Plan: VTE/Bowel/Pain management per primary orthopedic team (2) Hypertension: Plan: Hold lisinopril/HCTZ on discharge. Follow up with PCP (3) Diabetes mellitus, type 2: Plan: Hemoglobin A1C 7.2 in February per patient recollection. No pre-op clearance uploaded. HbA1C with AM labs Pharmacy consulted for glycemic control while inpatient Hold home regimen of metformin, Tresiba 12 units QPM, Humalog 2units BID, Victoza 1.8mg SQ daily and Actos. did not take anything this morning. No change to diabetes regimen recommended on discharge (4) Hyperlipidemia: Plan: Continue atorvastatin No history of [place] or stroke Plan Post op labs and vital signs reviewed. Thank you for the consult. Since the patient is a planned discharge we will sign off at this time. Discharge instructions/medications changed to reflect mild post operative hypotension as above but as long as she is asymptomatic she can be discharged. Please contact [facility] hospitalist presentation designer if you would like us to review patient or for any questions or concerns. Admission and Anticipated Discharge Date Admission Date: March 22, 2023 Anticipated date of discharge: 03/23/23 Subjective No acute concerns or questions. No dizziness on standing per patient. Orthopedics planning on discharging later today. Review of Systems Review of Systems: All systems reviewed & are unremarkable except as noted in HPI & below Physical Exam Constitutional: WD/WN, vitals as above Respiratory: normal respiratory effort, lungs clear to auscultation Cardiovascular: RRR, no murmur, no edema Gastrointestinal (Abdomen): normal bowel sounds, soft, nontender, no hepatosplenomegaly Neurologic: moves all extremities and awake; not confused Psychiatric: A+Ox3, euthymic affect Results & Data Results & Data Vital Signs (Past 12 Hours) Vital Signs Temp Pulse Pulse Resp BP Pulse Ox O2 Del Method 03/23/23 07:31 Room Air 03/23/23 07:16 36.4 C L 75 16 97/60 L 97 Room Air 03/23/23 05:25 94 H 103/67 03/23/23 03:21 36.4 C L 76 16 92/60 L 93 Room Air 03/22/23 23:04 36.3 C L 83 18 112/71 96 Room Air Laboratory Results Abnormal lab results 1003/22/23 03/22/23 Range/Units 16:28 16:33 16:33 WBC 11.46 H (4.8-10.8) K/ul RBC 3.51 L (4.20-5.40) M/uL Hgb 10.0 L (12.0-16.0) g/dl Hct 31.0 L (37.0-47.0) % Neut # (Auto) 10.71 H (1.40-6.50) K/uL Lymph # (Auto) 0.52 L (1.20-3.40) K/uL Sodium 133 L (136-145) mmol/L BUN 28 H (6-23) mg/dl BUN/Creatinine Ratio 29.2 H (10-20) Glucose 207 H (70-99(Fasting)) mg/dl POC Glucose 193 H (70-99) mg/dl Hemoglobin A1c (4.5-5.6) % Calcium 8.5 L (8.6-10.3) mg/dl 03/22/23 03/23/23 03/23/23 Range/Units 20:32 06:11 06:11 WBC 19.58 H (4.8-10.8) K/ul RBC 3.27 L (4.20-5.40) M/uL Hgb 9.6 L (12.0-16.0) g/dl Hct 28.5 L (37.0-47.0) % Neut # (Auto) (1.40-6.50) K/uL Lymph # (Auto) (1.20-3.40) K/uL Sodium (136-145) mmol/L BUN (6-23) mg/dl BUN/Creatinine Ratio (10-20) Glucose (70-99(Fasting)) mg/dl POC Glucose 146 H (70-99) mg/dl Hemoglobin A1c 7.4 H (4.5-5.6) % Calcium (8.6-10.3) mg/dl 03/23/23 03/23/23 03/23/23 Range/Units 06:11 07:42 11:55 WBC (4.8-10.8) K/ul RBC (4.20-5.40) M/uL Hgb (12.0-16.0) g/dl Hct (37.0-47.0) % Neut # (Auto) (1.40-6.50) K/uL Lymph # (Auto) (1.20-3.40) K/uL Sodium 135 L (136-145) mmol/L BUN 32 H (6-23) mg/dl BUN/Creatinine Ratio 35.6 H (10-20) Glucose 224 H (70-99(Fasting)) mg/dl POC Glucose 242 H 206 H (70-99) mg/dl Hemoglobin A1c (4.5-5.6) % Calcium 7.7 L (8.6-10.3) mg/dl PG Care Time/CCT Total # of Minutes Spent Total Time Spent with Patient: Total time spent is greater than 50% in coordination of care (as documented) at patient's floor/unit and/or counseling patient: Coding Level of Care Code 23799 SUB INP/OBS CARE 06/29MIN Diagnoses Status post total knee replacement Z96.659 Hypertension I10 Diabetes mellitus, type 2 E11.9 Hyperlipidemia E78.5
--- NOTE | 2023-03-23 10:08 | Orthopedic Progress Note ---
Date of Service March 23, 2023 Assessment & Plan (1) Status post right knee replacement: Plan: 82 yo female stable POD #1 s/p right TKA 1. Med management 2. DVT prophylaxis- ASA, SCDs 3. PT/OT 4. D/C planning- home w/ HH Admission and Anticipated Discharge Date Admission Date: March 22, 2023 Subjective Pt resting in chair, pain controlled, denies complaints Physical Exam Physical Exam: Dressing/drain in place, FORREST in place, toes mobile, NVI Results & Data Vital Signs (Past 12 Hours) Vital Signs Temp Pulse Pulse Resp BP Pulse Ox O2 Del Method 03/23/23 07:31 Room Air 03/23/23 07:16 36.4 C L 75 16 97/60 L 97 Room Air 03/23/23 05:25 94 H 103/67 03/23/23 03:21 36.4 C L 76 16 92/60 L 93 Room Air 03/22/23 23:04 36.3 C L 83 18 112/71 96 Room Air Laboratory Results 03/23/23 03/23/23 03/23/23 Range/Units 07:42 06:11 06:11 WBC 19.58 H (4.8-10.8) K/ul RBC 3.27 L (4.20-5.40) M/uL Hgb 9.6 L (12.0-16.0) g/dl Hct 28.5 L (37.0-47.0) % MCV 87.2 (80.0-100.0) fL MCH 29.4 (25.0-34.0) pg MCHC 33.7 (32.0-36.0) g/dL RDW Std Deviation 44.0 (36.4-46.3) fL RDW Coeff of Mildred 13.8 (11.5-14.5) % Plt Count 213 (130-400) K/uL MPV 10.6 (9.4-12.4) fL Immature Gran % (Auto) % Neut % (Auto) % Lymph % (Auto) % Gregg % (Auto) % Eos % (Auto) % Baso % (Auto) % Neut # (Auto) (1.40-6.50) K/uL Lymph # (Auto) (1.20-3.40) K/uL Gregg # (Auto) (0.11-0.59) K/uL Eos # (Auto) (0.00-0.50) K/uL Baso # (Auto) (0.00-0.20) K/uL Immature Gran # (Auto) (0.01-0.20) K/uL Sodium 135 L (136-145) mmol/L Potassium 4.7 (3.5-5.1) mmol/L Chloride 105 (98-107) mmol/L Carbon Dioxide 24 (21-32) mmol/L Anion Gap 6 (3-11) BUN 32 H (6-23) mg/dl Creatinine 0.90 (0.6-1.2) mg/dl Est Cr Clr Drug Dosing 55.6 ml/min Est GFR ( Amer) 69.0 ml/min Est GFR (Non-Af Amer) 59.5 ml/min BUN/Creatinine Ratio 35.6 H (10-20) Glucose 224 H (70-99(Fasting)) mg/dl POC Glucose 242 H (70-99) mg/dl Estimat Average Glucose mg/dl Hemoglobin A1c (4.5-5.6) % Calcium 7.7 L (8.6-10.3) mg/dl Total Bilirubin (0.2-1.0) mg/dl AST (13-39) U/L ALT (7-52) U/L Alkaline Phosphatase (34-104) U/L Total Protein (6.0-8.3) gm/dl Albumin (3.4-5.0) gm/dl Globulin (2.5-4.0) gm/dl Albumin/Globulin Ratio (0.9-2) 03/23/23 03/22/23 03/22/23 Range/Units 06:11 20:32 16:33 WBC (4.8-10.8) K/ul RBC (4.20-5.40) M/uL Hgb (12.0-16.0) g/dl Hct (37.0-47.0) % MCV (80.0-100.0) fL MCH (25.0-34.0) pg MCHC (32.0-36.0) g/dL RDW Std Deviation (36.4-46.3) fL RDW Coeff of Mildred (11.5-14.5) % Plt Count (130-400) K/uL MPV (9.4-12.4) fL Immature Gran % (Auto) % Neut % (Auto) % Lymph % (Auto) % Gregg % (Auto) % Eos % (Auto) % Baso % (Auto) % Neut # (Auto) (1.40-6.50) K/uL Lymph # (Auto) (1.20-3.40) K/uL Gregg # (Auto) (0.11-0.59) K/uL Eos # (Auto) (0.00-0.50) K/uL Baso # (Auto) (0.00-0.20) K/uL Immature Gran # (Auto) (0.01-0.20) K/uL Sodium 133 L (136-145) mmol/L Potassium 4.9 (3.5-5.1) mmol/L Chloride 101 (98-107) mmol/L Carbon Dioxide 26 (21-32) mmol/L Anion Gap 6 (3-11) BUN 28 H (6-23) mg/dl Creatinine 0.96 (0.6-1.2) mg/dl Est Cr Clr Drug Dosing 52.2 ml/min Est GFR ( Amer) 63.8 ml/min Est GFR (Non-Af Amer) 55.1 ml/min BUN/Creatinine Ratio 29.2 H (10-20) Glucose 207 H (70-99(Fasting)) mg/dl POC Glucose 146 H (70-99) mg/dl Estimat Average Glucose 166 mg/dl Hemoglobin A1c 7.4 H (4.5-5.6) % Calcium 8.5 L (8.6-10.3) mg/dl Total Bilirubin 0.7 (0.2-1.0) mg/dl AST 19 (13-39) U/L ALT 13 (7-52) U/L Alkaline Phosphatase 56 (34-104) U/L Total Protein 6.0 (6.0-8.3) gm/dl Albumin 3.4 (3.4-5.0) gm/dl Globulin 2.6 (2.5-4.0) gm/dl Albumin/Globulin Ratio 1.3 (0.9-2) 03/22/23 03/22/23 03/22/23 Range/Units 16:33 16:28 12:27 WBC 11.46 H (4.8-10.8) K/ul RBC 3.51 L (4.20-5.40) M/uL Hgb 10.0 L (12.0-16.0) g/dl Hct 31.0 L (37.0-47.0) % MCV 88.3 (80.0-100.0) fL MCH 28.5 (25.0-34.0) pg MCHC 32.3 (32.0-36.0) g/dL RDW Std Deviation 44.2 (36.4-46.3) fL RDW Coeff of Mildred 13.8 (11.5-14.5) % Plt Count 200 (130-400) K/uL MPV 10.3 (9.4-12.4) fL Immature Gran % (Auto) 0.5 % Neut % (Auto) 93.5 % Lymph % (Auto) 4.5 % Gregg % (Auto) 1.2 % Eos % (Auto) 0.0 % Baso % (Auto) 0.3 % Neut # (Auto) 10.71 H (1.40-6.50) K/uL Lymph # (Auto) 0.52 L (1.20-3.40) K/uL Gregg # (Auto) 0.14 (0.11-0.59) K/uL Eos # (Auto) 0.00 (0.00-0.50) K/uL Baso # (Auto) 0.03 (0.00-0.20) K/uL Immature Gran # (Auto) 0.06 (0.01-0.20) K/uL Sodium (136-145) mmol/L Potassium (3.5-5.1) mmol/L Chloride (98-107) mmol/L Carbon Dioxide (21-32) mmol/L Anion Gap (3-11) BUN (6-23) mg/dl Creatinine (0.6-1.2) mg/dl Est Cr Clr Drug Dosing ml/min Est GFR ( Amer) ml/min Est GFR (Non-Af Amer) ml/min BUN/Creatinine Ratio (10-20) Glucose (70-99(Fasting)) mg/dl POC Glucose 193 H 179 H (70-99) mg/dl Estimat Average Glucose mg/dl Hemoglobin A1c (4.5-5.6) % Calcium (8.6-10.3) mg/dl Total Bilirubin (0.2-1.0) mg/dl AST (13-39) U/L ALT (7-52) U/L Alkaline Phosphatase (34-104) U/L Total Protein (6.0-8.3) gm/dl Albumin (3.4-5.0) gm/dl Globulin (2.5-4.0) gm/dl Albumin/Globulin Ratio (0.9-2)
--- NOTE | 2023-03-23 10:31 | Operative Report ---
Post Operative Report Pre & Post Diagnosis Operation Date: 03/22/23 07:15 Pre-Op Diagnosis: Right Knee Osteoarthritis Post-Op Diagnosis: Right Knee Osteoarthritis I identified the patient and participated in the time-out.: Yes Procedure Operation Date: 03/22/23 07:15 Actual Procedures p Right Total Knee Arthroplasty(Right) - Lazaro Livingston DO Surgeon Lazaro Livingston DO Water Project Engineer Darnell GAY Estimated Blood Loss 80 Findings Consistent with Post-Op Diagnosis Severe end-stage tricompartmental DJD varus alignment subchondral sclerosis marginal osteophytes Specimens Bone and cartilage Drains Medium bore Hemovac Anesthesia Type MAC Spinal Regional Complications none Disposition Accompanied Patient To Recovery: No Disposition: Recovery Room Indications Patient resents with severe end-stage tricompartmental DJD right knee failed attempted conservative management including injections physical therapy relative rest Description of Procedure After proper prepping and draping of the Right lower extremity anterior midline incision was made over the region of the extensor extensor mechanism after meticulous hemostasis was obtained and maintained in subcutaneous tissues a medial parapatellar incision was made The patella was subluxed lateralward the medial lateral gutter were cleaned from any hypertrophic synovitis and scar tissue of the distal femoral block was placed and the distal femoral osteotomy cut was made subsequently the chamfers anterior and posterior osteotomy cuts were made utilizing the 4-in-1 block the tibia was subsequently subluxed anteriorward medial and ateral meniscal remnants were excised in their entirety remnants of the anterior and posterior cruciate ligaments were excised in their entirety excellent exposure of the proximal tibia was obtained the tibial osteotomy guide was placed on the proximal tibial osteotomy cut was made once again the knee was irrigated with copious amounts of sterile saline solution the patella was subsequently everted lateralward thickened scar tissue around the patella was removed the patella was subsequently cut utilizing a freehand technique and was drilled prepared for final preparation and placement of patella socially flexion-extension gaps were checked and the equal and symmetric trials were placed to the appropriate femoral and tibial trials with poly-spacer being placed for equal flexion and extension gaps and full range of motion including extension to 0 and flexion to 140 the trial components after having been taken to recovery range of motion was subsequently removed meticulous hemostasis was obtained and maintained subsequently a knee block injection of joint cocktail including ropivacaine 0.5% 150 mg. Bupivacaine 0.5% epinephrine 1-200,030 mL's toradol 30 mg dexamethasone 4 mg ketamine 10 mg clonidine 100 micrograms normal saline solution 30 mg was infiltrated into the soft tissues of the posterior knee medial lateral gutters and periosteal synovium special attention was paid to protect neurovascular structures at all times subsequently trial components having been removed the knee was irrigated with sterile saline solution. debris was removed the proximal tibia was subsequently prepared and was made ready for the placement of the tibial component tibial component was also cemented and tamped into position the femoral component was subsequently placed and cemented in the position the patellar component was subsequently cemented in position because hemostasis once again obtained and maintained wound having been thoroughly irrigated with debridement and debridement lavage was performed as well as a medial parapatellar incision closed with #1 Vicryl in interrupted fashion subcutaneous was closed with #2 Vicryl skin was closed with skin clips. PA-C was necessary for prepping and drapping as well as wound closure of deep fascia Sub cutaneous tissue and skin and was necessary for the case. A sterile compressive dressing was placed patient was taken to recovery in stable condition of report dictated by Miki I attest to the content of the Intraoperative Record and any orders documented therein. Any exceptions are noted below.Due to the complex nature of the procedure, the entire surgery was performed with the operational assistance of [Darnell GAY]. The cafe assistant, under direct supervision, was involved in the actual performance of all aspects of the surgical procedure including hemostasis, tissue retraction and incision, instrument management, patient positioning, and wound closure. I attest to the content of the Intraoperative Record and any orders documented therein. Any exceptions are noted below.
--- NOTE | 2023-03-24 16:17 | Discharge Summary ---
Date of Service March 24, 2023 Admission HPI Per Admitting Provider Roopa is a pleasant 82-year-old female who presented for preop evaluation prior to upcoming right total knee arthroplasty. She has had pain in his knee for over 10 years now which is gradually worsened and is now affecting her daily activities. She undergone previous cortisone injection as well as viscosupplementation without any relief. She tried vessel traffic officer brace as well as physical therapy. Rated her current pain is 7 out of 10. This point time is failed conservative measures like to proceed with right total knee replacement Admission Exam Per Admitting Provider Physical Exam: HT 5ft 3.5in WT: 101.4kg Constitutional: WD/WN, vitals as above no acute distress Respiratory: normal respiratory effort, lungs clear to auscultation no respiratory distress, no labored breathing and does not use accessory muscles Cardiovascular: RRR, no murmur, no edema Gastrointestinal (Abdomen): normal bowel sounds, soft, nontender, no hepatosplenomegaly Musculoskeletal: Knee: + knee abnormal to inspection (RIGHT KNEE: ), + effusion (+1 effusion), + limited ROM of knee (ROM 0/3/110), + knee ROM with crepitation, + joint line tenderness (medial joint line) and + Rupal's sign positive; no deformity, no skin erythema, no ecchymosis, no valgus laxity, no varus laxity, anterior drawer test negative, Saúl's sign negative and pivot shift test negative Principal Diagnosis Right Knee Osteoarthritis Discharge Data Allergies Allergy/AdvReac Type Severity Reaction Status Date / Time cephalexin [From Keflex] Allergy Mild Rash Verified 03/22/23 06:06 Consultations 03/22/23 12:28 Consult Hospitalist Routine Procedures Performed Operation Date: 03/22/23 07:15 Actual Procedures p Right Total Knee Arthroplasty(Right) - Lazaro Livingston DO s Left Knee Joint Injection(Left) - Lazaro Livingston DO Ordered Studies 03/22/23 05:00 US - OR guided needle placemen Routine Hospital Course (1) Status post right knee replacement: Patient:ROOPA LANGE Admit Date:03/22/23 MR#:[id number] Att Phy:Lazaro Livingston,D.O. Acct ID:[id number] Eliza Phy:Olivia Casey MD Date:1940 Fam Phy: Age:82 Location:3E Sex:F Room/Bed:E3[facility] cc: ~ *NOTICE TO RECEIVING CONSTITUTION PARTY/AGENCY This information is strictly Confidential and protected under [place] law. [place] law prohibits you from making any further disclosure of this information unless further disclosure is expressly permitted by the written consent of the person to whom it pertains or is authorized by law. A general authorization for the release of medical or other information is not sufficient for this purpose. Hospital accepts no responsibility if the information is made available to any other person, INCLUDING THE PATIENT. Date of Service March 23, 2023 Assessment & Plan (1) Status post right knee replacement: Plan: 82 yo female stable POD #1 s/p right TKA 1. Med management 2. DVT prophylaxis- ASA, SCDs 3. PT/OT 4. D/C planning- home w/ HH Admission and Anticipated Discharge Date Admission Date: March 22, 2023 Subjective Pt resting in chair, pain controlled, denies complaints Physical Exam Physical Exam: Dressing/drain in place, FORREST in place, toes mobile, NVI Results & Data Vital Signs (Past 12 Hours) Vital Signs Temp Pulse Pulse Resp BP Pulse Ox O2 Del Method 03/23/23 07:31 Room Air 03/23/23 07:16 36.4 C L 75 16 97/60 L 97 Room Air 03/23/23 05:25 94 H 103/67 03/23/23 03:21 36.4 C L 76 16 92/60 L 93 Room Air 03/22/23 23:04 36.3 C L 83 18 112/71 96 Room Air Laboratory Results 03/23/23 03/23/23 03/23/23 Range/Units 07:42 06:11 06:11 WBC 19.58 H (4.8-10.8) K/ul RBC 3.27 L (4.20-5.40) M/uL Hgb 9.6 L (12.0-16.0) g/dl Hct 28.5 L (37.0-47.0) % MCV 87.2 (80.0-100.0) fL MCH 29.4 (25.0-34.0) pg MCHC 33.7 (32.0-36.0) g/dL RDW Std Deviation 44.0 (36.4-46.3) fL RDW Coeff of Mildred 13.8 (11.5-14.5) % Plt Count 213 (130-400) K/uL MPV 10.6 (9.4-12.4) fL Immature Gran % (Auto) % Neut % (Auto) % Lymph % (Auto) % Rolette % (Auto) % Eos % (Auto) % Baso % (Auto) % Neut # (Auto) (1.40-6.50) K/uL Lymph # (Auto) (1.20-3.40) K/uL Rolette # (Auto) (0.11-0.59) K/uL Eos # (Auto) (0.00-0.50) K/uL Baso # (Auto) (0.00-0.20) K/uL Immature Gran # (Auto) (0.01-0.20) K/uL Sodium 135 L (136-145) mmol/L Potassium 4.7 (3.5-5.1) mmol/L Chloride 105 (98-107) mmol/L Carbon Dioxide 24 (21-32) mmol/L Anion Gap 6 (3-11) BUN 32 H (6-23) mg/dl Creatinine 0.90 (0.6-1.2) mg/dl Est Cr Clr Drug Dosing 55.6 ml/min Est GFR ( Amer) 69.0 ml/min Est GFR (Non-Af Amer) 59.5 ml/min BUN/Creatinine Ratio 35.6 H (10-20) Glucose 224 H (70-99(Fasting)) mg/dl POC Glucose 242 H (70-99) mg/dl Estimat Average Glucose mg/dl Hemoglobin A1c (4.5-5.6) % Calcium 7.7 L (8.6-10.3) mg/dl Total Bilirubin (0.2-1.0) mg/dl AST (13-39) U/L ALT (7-52) U/L Alkaline Phosphatase (34-104) U/L Total Protein (6.0-8.3) gm/dl Albumin (3.4-5.0) gm/dl Globulin (2.5-4.0) gm/dl Albumin/Globulin Ratio (0.9-2) 03/23/23 03/22/23 03/22/23 Range/Units 06:11 20:32 16:33 WBC (4.8-10.8) K/ul RBC (4.20-5.40) M/uL Hgb (12.0-16.0) g/dl Hct (37.0-47.0) % MCV (80.0-100.0) fL MCH (25.0-34.0) pg MCHC (32.0-36.0) g/dL RDW Std Deviation (36.4-46.3) fL RDW Coeff of Mildred (11.5-14.5) % Plt Count (130-400) K/uL MPV (9.4-12.4) fL Immature Gran % (Auto) % Neut % (Auto) % Lymph % (Auto) % Rolette % (Auto) % Eos % (Auto) % Baso % (Auto) % Neut # (Auto) (1.40-6.50) K/uL Lymph # (Auto) (1.20-3.40) K/uL Rolette # (Auto) (0.11-0.59) K/uL Eos # (Auto) (0.00-0.50) K/uL Baso # (Auto) (0.00-0.20) K/uL Immature Gran # (Auto) (0.01-0.20) K/uL Sodium 133 L (136-145) mmol/L Potassium 4.9 (3.5-5.1) mmol/L Chloride 101 (98-107) mmol/L Carbon Dioxide 26 (21-32) mmol/L Anion Gap 6 (3-11) BUN 28 H (6-23) mg/dl Creatinine 0.96 (0.6-1.2) mg/dl Est Cr Clr Drug Dosing 52.2 ml/min Est GFR ( Amer) 63.8 ml/min Est GFR (Non-Af Amer) 55.1 ml/min BUN/Creatinine Ratio 29.2 H (10-20) Glucose 207 H (70-99(Fasting)) mg/dl POC Glucose 146 H (70-99) mg/dl Estimat Average Glucose 166 mg/dl Hemoglobin A1c 7.4 H (4.5-5.6) % Calcium 8.5 L (8.6-10.3) mg/dl Total Bilirubin 0.7 (0.2-1.0) mg/dl AST 19 (13-39) U/L ALT 13 (7-52) U/L Alkaline Phosphatase 56 (34-104) U/L Total Protein 6.0 (6.0-8.3) gm/dl Albumin 3.4 (3.4-5.0) gm/dl Globulin 2.6 (2.5-4.0) gm/dl Albumin/Globulin Ratio 1.3 (0.9-2) 03/22/23 03/22/23 03/22/23 Range/Units 16:33 16:28 12:27 WBC 11.46 H (4.8-10.8) K/ul RBC 3.51 L (4.20-5.40) M/uL Hgb 10.0 L (12.0-16.0) g/dl Hct 31.0 L (37.0-47.0) % MCV 88.3 (80.0-100.0) fL MCH 28.5 (25.0-34.0) pg MCHC 32.3 (32.0-36.0) g/dL RDW Std Deviation 44.2 (36.4-46.3) fL RDW Coeff of Mildred 13.8 (11.5-14.5) % Plt Count 200 (130-400) K/uL MPV 10.3 (9.4-12.4) fL Immature Gran % (Auto) 0.5 % Neut % (Auto) 93.5 % Lymph % (Auto) 4.5 % Rolette % (Auto) 1.2 % Eos % (Auto) 0.0 % Baso % (Auto) 0.3 % Neut # (Auto) 10.71 H (1.40-6.50) K/uL Lymph # (Auto) 0.52 L (1.20-3.40) K/uL Rolette # (Auto) 0.14 (0.11-0.59) K/uL Eos # (Auto) 0.00 (0.00-0.50) K/uL Baso # (Auto) 0.03 (0.00-0.20) K/uL Immature Gran # (Auto) 0.06 (0.01-0.20) K/uL Sodium (136-145) mmol/L Potassium (3.5-5.1) mmol/L Chloride (98-107) mmol/L Carbon Dioxide (21-32) mmol/L Anion Gap (3-11) BUN (6-23) mg/dl Creatinine (0.6-1.2) mg/dl Est Cr Clr Drug Dosing ml/min Est GFR ( Amer) D ml/min Est GFR (Non-Af Amer) ml/min BUN/Creatinine Ratio (10-20) Glucose (70-99(Fasting)) mg/dl POC Glucose 193 H 179 H (70-99) mg/dl Estimat Average Glucose mg/dl Hemoglobin A1c (4.5-5.6) % Calcium (8.6-10.3) mg/dl Total Bilirubin (0.2-1.0) mg/dl AST (13-39) U/L ALT (7-52) U/L Alkaline Phosphatase (34-104) U/L Total Protein (6.0-8.3) gm/dl Albumin (3.4-5.0) gm/dl Globulin (2.5-4.0) gm/dl Albumin/Globulin Ratio (0.9-2) Signed By: <Electronically signed by Bob Verma > 03/23/23 1008 <Electronically signed by Jacinto Conner M.D.> 03/23/23 1442 Created:03/23/23 1006 Total Time Total Time Spent Total Time Spent (In Minutes): 5 Discharge Plan Discharge Items Patient Disposition: Home - Home Health Services Reason For Visit: Right Knee Osteoarthritis Discharge Diagnosis: Right Knee Osteoarthritis Activity: Per Instructions section Weightbearing: Full weightbearing Non-emergency contact: Surgeon Call non-emergency contact if: you have any medication questions, your pain is not controlled, your temperature is above 101.5, your wound has increased redness and your wound has increased drainage Follow-up/Referrals: Lazaro Livingston DO [Surgeon] - (Follow up with Dr Livingston in 2 weeks from the day of your surgery for your first post operative visit) Olivia Casey M.D. [Primary Care Provider] - Diet: Carb Consistent or DM2 Addtl Attending Provider Instructions: ACTIVITY RECOMMENDATIONS: SELF CARE INSTRUCTIONS AFTER TOTAL KNEE REPLACEMENT A. You may need to continue a physical therapy program after discharge from the hospital. There are several options available to you. Your doctor will assist you in selecting the best one for you. 1. An out-patient facility 2 to 3 times a week for therapy or home therapy. 2. Continue working on all exercises taught to you in the hospital. Your goals should be to increase bending of your knee to 90 degrees and beyond and to fully straighten your knee. B. You may progress at your own pace from walking with a walker or crutches to a cane; then to no assistive devices. C. Make walking a part of your daily routine. Be up as much as comfortable with rest periods throughout the day. Rest with leg elevation is very important. Use the ice wrap frequently for the first 3-4 weeks. D. There are no restrictions on activities. You may ride in a car, shop, participate in senior partner and all social activities. E. Wear the long elastic stockings (YARELIS hose) 20 hours a day for 2 weeks after surgery. They can be removed several times a day for laundering and for a bath. F. You may shower, no tub baths until cleared by your doctor. SPECIAL CARE INSTRUCTIONS: VERY IMPORTANT TO READ AND REVIEW A. There are a few signs you need to watch for after you are home. Call [facility] if you notice any of the followin. Increased severe knee pain. Some pain is expected especially when you exercise. 2. Increased swelling in your leg or knee; pain or swelling of the calf muscle in either lower leg. 3. Any fluid drainage from the incision. 4. Shortness of breath or chest pain. B. Please call [facility] at if you have any concerns or questions about your operation or recovery. The doctor or his nurse will return your call promptly. C. You must take antibiotics before dental work, bladder, bowel or other surgery. Your doctor will provide you with a permanent care to carry describing this precaution. IMPORTANT: * REMEMBER TO TAKE ASPIRIN, 81 MG, TWICE DAILY FOR 4 WEEKS UNLESS OTHERWISE DIRECTED. THIS IS YOUR BLOOD THINNER. * CALL IF INCREASED PAIN, REDNESS, DRAINAGE OR FEVER GREATER THAT 101. * WEAR YARELIS HOSE 20 HOURS PER DAY FOR 2 WEEKS. * Prevena- This is a large suction dressing covering your incision. This will help pull any excess drainage from the wound and allow your incision to heal properly. You may shower with this if you can keep the unit outside of the shower. If any bleeding or leakage is noted please call your doctor's office. This will remain on your incision for 7 days and then should be removed. This can be done yourself or by the home nursing staff if applicable. The entire unit is disposable once removed. Once removed, keep incision clean and dry. If redness or drainage is noted, please call your surgeon. . FOLLOW UP VISIT: If appointment is not already scheduled: Please call [facility] to make a follow-up appointment for 2 weeks after your surgery at . Addtl Associate Director Financial Aid Provider Instructions: Medicine Consultation: Please hold lisinopril and hydrochlorothiazide on discharge. Follow up with your primary care physician to restart these if necessary. Pending Studies at Discharge: No Stand-Alone Forms: My [facility] [employer], Pain - Opioid Pain Management, Smoking Cessation Medications and DC Order Prescriptions: New acetaminophen [Tylenol Extra Strength] 500 mg Tablet 1,000 mg PO Q8 14 Days Qty: 84 0RF aspirin 81 mg Tablet,Delayed Release (Dr/Ec) 81 mg PO BID 30 Days Qty: 60 0RF polyethylene glycol 3350 [Miralax] 17 gram powder in packet 17 g PO DAILY PRN (Reason: constipation) Qty: 5 0RF oxycodone 5 mg tablet 5 - 10 mg PO Q6H MDD Max 6 tabs daily PRN (Reason: pain) Qty: 18 0RF Continued atorvastatin [Lipitor] 40 mg Tablet 40 mg PO HS metformin 500 mg Tablet 1,000 mg PO BID pioglitazone [Actos] 30 mg Tablet 30 mg PO QAM magnesium oxide 250 mg magnesium Tablet 250 mg PO QAM insulin lispro 100 unit/mL Insulin Pen 2 unit SUBCUT BID potassium gluconate 595 mg (99 mg) Tablet 595 mg PO QAM Victoza 2-Felipe 0.6 mg/0.1 mL (18 mg/3 mL) Pen Injector 1.8 mg SUBCUT QAM insulin degludec [Tresiba FlexTouch U-100] 100 unit/mL (3 mL) Insulin Pen 12 unit SUBCUT QPM Held hydrochlorothiazide 50 mg Tablet 50 mg PO QAM Hold Instructions: Resume on 03/05/27. Resume only if primary care physician resumes on follow up lisinopril 2.5 mg Tablet 2.5 mg PO QAM Hold Instructions: Resume on 03/05/27. Resume only if primary care physician resumes on follow up appointment Discontinued aspirin [Aspir-81] 81 mg Tablet,Delayed Release (Dr/Ec) 81 mg PO QAM acetaminophen [Tylenol] 325 mg Tablet 325 mg PO QID PRN (Reason: Pain) Krames/Other Patient Handouts: DVT Post Op Prevention, Managing Type 2 Diabetes Admission Data Admit Date/Time: 03/22/23 09:52 Attending Provider: Lazaro Livingston Admit Provider: Lazaro Livingston Primary Care Provider: Olivia Casey Other Providers: Lazaro Lux ; Nirmal Jose Other Interventions: Discharge Summary Assessment (RN) Last Done: 03/23/23 12:29
== END 2023-03-23 13:17 | disposition home health service (06) ==
LOC: ASU 05:43 → 3E 05:43

== ENCOUNTER 2023-09-06 07:28 | Observation (INO) ==
--- NOTE | 2023-08-02 12:12 | PAT Medication Instructions ---
Medication Instructions Date of Service August 02, 2023 Home Medications Medication Instructions Recorded polyethylene glycol 3350 17 gram 17 g PO DAILY PRN constipation #5 03/22/23 oral powder packet (Miralax) ea atorvastatin 40 mg tablet (Lipitor) 40 mg PO HS hydrochlorothiazide 50 mg tablet 50 mg PO QAM insulin degludec 100 unit/mL (3 mL) subcutaneous pen (Tresiba FlexTouch U-100 insulin) 12 unit subcut QPM insulin lispro 100 unit/mL subcutaneous pen 2 unit subcut BID liraglutide 0.6 mg/0.1 mL (18 mg/3 mL) subcutaneous pen injector (Victoza 2-Felipe) 1.8 mg subcut QAM lisinopril 2.5 mg tablet 2.5 mg PO QAM magnesium oxide 250 mg PO QAM metformin 500 mg tablet 1,000 mg PO BID pioglitazone 30 mg tablet (Actos) 30 mg PO QAM potassium gluconate 595 mg (99 mg) tablet 595 mg PO QAM polyethylene glycol 3350 17 gram oral powder packet (Miralax) 17 g PO DAILY PRN constipation aspirin 81 mg capsule 81 mg PO QAM DO NOT take the morning of surgery hydrochlorothiazide 50 mg tablet 50 mg PO QAM insulin lispro 100 unit/mL subcutaneous pen 2 unit subcut BID liraglutide 0.6 mg/0.1 mL (18 mg/3 mL) subcutaneous pen injector (Victoza 2-Felipe) 1.8 mg subcut QAM lisinopril 2.5 mg tablet 2.5 mg PO QAM magnesium oxide 250 mg PO QAM metformin 500 mg tablet 1,000 mg PO BID pioglitazone 30 mg tablet (Actos) 30 mg PO QAM potassium gluconate 595 mg (99 mg) tablet 595 mg PO QAM polyethylene glycol 3350 17 gram oral powder packet (Miralax) 17 g PO DAILY PRN constipation Take morning of surgery With a small sip of water, OTHERWISE NOTHING TO EAT OR DRINK AFTER MIDNIGHT: aspirin 81 mg capsule 81 mg PO QAM (unless surgeon directed otherwise) Take evening before surgery atorvastatin 40 mg tablet (Lipitor) 40 mg PO HS insulin degludec 100 unit/mL (3 mL) subcutaneous pen (Tresiba FlexTouch U-100 insulin) 12 unit subcut QPM insulin lispro 100 unit/mL subcutaneous pen 2 unit subcut BID metformin 500 mg tablet 1,000 mg PO BID polyethylene glycol 3350 17 gram oral powder packet (Miralax) 17 g PO DAILY PRN constipation (if needed) Other Notes If you have any questions please call us at [phone] or [phone] or [phone] or [phone]
--- NOTE | 2023-08-04 11:06 | Anesthesiology Consultation ---
Date of Service August 04, 2023 Assessment & Plan (1) Encounter for pre-operative examination: - check BSG am DOS. - awaiting [facility] PCP (Dr. Olivia Casey) pre-operative clearance, scheduled in 3 weeks per pt. - s/p right TKA 03/22/23 SAB L4-L5 2 attempts + PNB. Chart Review Chart Review: Pending: Refer to Additional Notes / Consult section and Patient seen in Pre Admission Testing Teaching & Discussion Pre-Anesthesia Teaching/Discussion Notes: Instructed NPO after midnight before surgery, except medications with 15 cc of water. Medication instructions provided according to the PAT guidelines. History Surgery Operation Date: 09/06/23 10:30 Proposed Procedures p Left Total Knee Arthroplasty - Lazaro Livingston DO Height/Weight Height: 5 ft 3.5 in Weight: 103.9 kg Allergies Allergy/AdvReac Type Severity Reaction Status Date / Time cephalexin [From Keflex] Allergy Mild Rash Verified 08/02/23 10:35 Medications Home Medications Medication Instructions Recorded Confirmed Last Taken atorvastatin 40 mg tablet (Lipitor) 40 mg PO HS 02/17/23 08/02/23 03/21/23 23:00 hydrochlorothiazide 50 mg tablet 25 mg PO QAM 02/17/23 08/04/23 03/21/23 09:00 insulin degludec 100 unit/mL (3 12 unit subcut QPM 02/17/23 08/02/23 03/21/23 19:00 mL) subcutaneous pen (Tresiba 12 units FlexTouch U-100 insulin) insulin lispro 100 unit/mL 2 unit subcut BID 02/17/23 08/02/23 03/21/23 19:00 subcutaneous pen 2 units liraglutide 0.6 mg/0.1 mL (18 mg/3 1.8 mg subcut QAM 02/17/23 08/02/23 03/21/23 09:00 mL) subcutaneous pen injector (Victoza 2-Felipe) lisinopril 2.5 mg tablet 2.5 mg PO QAM 02/17/23 08/02/23 03/21/23 09:00 magnesium oxide 250 mg PO QAM 02/17/23 08/02/23 03/21/23 09:00 metformin 500 mg tablet 1,000 mg PO BID 02/17/23 08/02/23 03/21/23 19:00 pioglitazone 30 mg tablet (Actos) 30 mg PO QAM 02/17/23 08/02/23 03/21/23 09:00 potassium gluconate 595 mg (99 mg) 595 mg PO QAM 02/17/23 08/02/23 03/21/23 09:00 tablet polyethylene glycol 3350 17 gram 17 g PO DAILY PRN constipation #5 03/22/23 08/02/23 Unknown oral powder packet (Miralax) ea aspirin 81 mg capsule 81 mg PO QAM 08/02/23 08/02/23 Unknown Past Medical History Medical History (Updated 08/04/23 @ 11:19 by Shameka Bustamante PA-C) Diabetes mellitus, type 2 IDDM Edema legs bilat, occasional, re-started on hydrochlorothiazide by PCP with improvement in edema GERD (gastroesophageal reflux disease) rare, diet related History of kidney stones 10 yrs ago Hyperlipidemia Hypertension controlled, stable per pt Peripheral neuropathy feet Racing heart beat Occasional heart racing x years, patient notes previous cardiology work-up unremarkable and was d/c by cardiology-denies dizziness/lightheadedness/chest discomfort/shortness of breath Patient denies h/o stroke, seizures, heart attack, heart failure, blood clots/DVTs or blood transfusions. Exercise / Class Metabolic Activity III < 4 Walking/Shop/Light housework (denies chest discomfort or shortness of breath with usual activities, ambulates with cane) Past Family History Family History Other No family history of adverse response to anesthesia Past Surgical History Surgical History History of appendectomy History of arthroscopy right shoulder right hip History of cataract surgery R/L History of cholecystectomy History of colonoscopy History of cystoscopy History of esophagogastroduodenoscopy (EGD) History of lithotripsy History of removal of ovarian cyst History of tonsillectomy and adenoidectomy History of tooth extraction Status post total knee replacement Right TKA with Left knee steroid injection (03/22/23): SAB x2 attempts + regional at [facility] Past Anesthesia History No Hx of Anesthesia Complications and No Family Hx of Anesthesia Complications History of PONV No Hx of PONV and No Hx of Motion Sickness Social History Smoking Status: Never smoker Do You Dip or Chew Tobacco: No Hx Alcohol Use: No Hx Substance Use: No substance use type: does not use Review of Systems H/o snoring, denies witnessed apneas. Patient denies chest pain, shortness of breath, dyspnea on exertion, snoring, witnessed apneas, fever, chills, cough, or wheezing. Physical Exam Vital Signs Vitals BP 126/64 P 93 TEMP 97.8 SP02 98% on RA RESP 17 Physical Patient resting comfortably in chair in no acute distress, alert and oriented, responding appropriately throughout visit Full cervical extension range of motion without pain TMD 3.5 finger breadths Mallampati Score 2 Dentition: intact, denies chipped or loose teeth, caps/crowns, implants or bridges Lungs: normal respiratory effort. Good air movement, clear throughout to auscultation, no adventitious breath sounds Cardiac: regular rate and rhythm, no murmurs noted Carotid arteries: negative bruit bilat Lab Results Anesthesia Preop Results Results Anesthesia Widget: WBC 6.17 K/ul (4.8-10.8) 08/04/23 Hgb 10.9 g/dl (12.0-16.0) L 08/04/23 Hct 34.4 % (37.0-47.0) L 08/04/23 Plt 232 K/uL (130-400) 08/04/23 Na 139 mmol/L (136-145) 08/04/23 K 4.6 mmol/L (3.5-5.1) 08/04/23 Cl 101 mmol/L (98-107) 08/04/23 CO2 31 mmol/L (21-32) 08/04/23 BUN 17 mg/dl (6-23) 08/04/23 Creat 0.70 mg/dl (0.6-1.2) 08/04/23 Glucose Level 156 mg/dl (70-99(Fasting)) H 08/04/23 PT 10.9 Seconds (9.0-12.0) 08/04/23 PTT 27 Seconds (21-31) 08/04/23 INR 1.0 (0.9-1.1) 08/04/23 HA1c 7.4 % (4.5-5.6) H 08/04/23 Blood Type A Positive 08/04/23 Antibody Screen NEGATIVE 08/04/23 Testing Electrocardiogram Date: 08/04/23 Sinus rhythm with 1st degree AV block, rate 87 bpm Chest X-Ray Date: 02/20/23 No acute chest disease.
--- NOTE | 2023-08-08 09:34 | History & Physical Report ---
Date of Service August 08, 2023 date of surgery: 09/06/23 Procedure: Left Total Knee Arthroplasty Surgeon: Lazaro Livingston, DO Assessment & Plan (1) Arthritis of knee, left: Plan: Further care discussed with patient and at this point in time has failed conservative measures and would like to proceed with a left total knee replacement. Plan on discharge will be home with home health physical therapy. DVT prophylaxiswith TEDs, SCDs and will also place on aspirin 81 mg p.o. b.i.d. for a month postop. Patient will have follow up appointment in our office two weeks post op for staple/suture removal and re-evaluation. Patient otherwise has no other questions or concerns. The risks and benefits have been discussed including, but not limited to, risk of infection, nerve injury, stiffness, loss of motion, failure to improve, etc. Reasonable outcomes and options of treatment were discussed. An explanation of appropriate alternatives to the procedure that may be advantageous were discussed and their risks and benefits, as well as the risks and benefits of not proceeding with treatment. I offered to answer any additional inquiries concerning the treatment involved. All the patient's questions were answered. The patient is agreeable, understanding of the treatment plan and alternatives, and wishes to proceed with the treatment plan. History of Present Illness Chief Complaint: left knee pain Primary Care Provider: Olivia Jacinto Blas is an 82-year-old female who presented for preop evaluation prior to upcoming left total knee arthroplasty. She has a longstanding history of left knee pain which gradually worsened and is now affecting his daily activities, rates her current pain as a 7 out of 10. She has tried and failed prior cortisone injection as well as viscosupplementation with no improvement. She has tried oral anti-inflammatories and Tylenol as well. At this point time is failed conservative measures and wishes to proceed with left total knee arthroplasty Allergies Allergy/AdvReac Type Severity Reaction Status Date / Time cephalexin [From Keflex] Allergy Mild Rash Verified 08/02/23 10:35 Home Medications Medication Instructions Recorded Confirmed Type atorvastatin 40 mg tablet (Lipitor) 40 mg PO HS 02/17/23 08/02/23 History hydrochlorothiazide 50 mg tablet 25 mg PO QAM 02/17/23 08/04/23 History insulin degludec 100 unit/mL (3 12 unit subcut QPM 02/17/23 08/02/23 History mL) subcutaneous pen (Tresiba FlexTouch U-100 insulin) insulin lispro 100 unit/mL 2 unit subcut BID 02/17/23 08/02/23 History subcutaneous pen liraglutide 0.6 mg/0.1 mL (18 mg/3 1.8 mg subcut QAM 02/17/23 08/02/23 History mL) subcutaneous pen injector (Victoza 2-Felipe) lisinopril 2.5 mg tablet 2.5 mg PO QAM 02/17/23 08/02/23 History magnesium oxide 250 mg PO QAM 02/17/23 08/02/23 History metformin 500 mg tablet 1,000 mg PO BID 02/17/23 08/02/23 History pioglitazone 30 mg tablet (Actos) 30 mg PO QAM 02/17/23 08/02/23 History potassium gluconate 595 mg (99 mg) 595 mg PO QAM 02/17/23 08/02/23 History tablet polyethylene glycol 3350 17 gram 17 g PO DAILY PRN constipation #5 03/22/23 08/02/23 Rx oral powder packet (Miralax) ea aspirin 81 mg capsule 81 mg PO QAM 08/02/23 08/02/23 History Past Med/Surg History Medical History Racing heart beat Occasional heart racing x years, patient notes previous cardiology work-up unremarkable and was d/c by cardiology-denies dizziness/lightheadedness/chest discomfort/shortness of breath Edema legs bilat, occasional, re-started on hydrochlorothiazide by PCP with improvement in edema GERD (gastroesophageal reflux disease) rare, diet related History of kidney stones 10 yrs ago Diabetes mellitus, type 2 IDDM Peripheral neuropathy feet Hypertension controlled, stable per pt Hyperlipidemia Surgical History Status post total knee replacement Right TKA with Left knee steroid injection (03/22/23): SAB x2 attempts + regional at [facility] History of removal of ovarian cyst History of arthroscopy right shoulder right hip History of cystoscopy History of lithotripsy History of esophagogastroduodenoscopy (EGD) History of colonoscopy History of cholecystectomy History of appendectomy History of tooth extraction History of tonsillectomy and adenoidectomy History of cataract surgery R/L Family History Other No family history of adverse response to anesthesia Social History Smoking Status: Never smoker Second Hand Exposure: No; Do You Dip or Chew Tobacco: No; Hx Alcohol Use: No Hx Substance Use: No Preferred Language: British Communication Ability: Effective Sewing Teacher Required: No Beliefs That Will Affect Care: None Current Living Situation: Spouse Feels Safe at Home: Yes Assistive Devices: Glasses Review of Systems Review of Systems: All systems reviewed & are unremarkable except as noted in HPI & below Constitutional: no fever, no chills and no sweats Respiratory: no cough and no dyspnea Cardiovascular: no chest pain, no dyspnea and no orthopnea Gastrointestinal: no abdominal pain, no nausea and no vomiting Musculoskeletal: as per Subjective / HPI Physical Exam Physical Exam: HT: 5ft 3.5in WT: 103.9kg Constitutional: WD/WN, vitals as above no acute distress Respiratory: normal respiratory effort, lungs clear to auscultation no respiratory distress, no labored breathing and does not use accessory muscles Cardiovascular: RRR, no murmur, no edema Gastrointestinal (Abdomen): normal bowel sounds, soft, nontender, no hepatosplenomegaly Musculoskeletal: Knee: + knee abnormal to inspection (LEFT KNEE: ), + effusion (+1 effusion), + limited ROM of knee (ROM 0/3/110), + knee ROM with crepitation, + joint line tenderness (medial joint line) and + Rupal's sign positive; no deformity, no skin erythema, no ecchymosis, no valgus laxity, no varus laxity, anterior drawer test negative, Saúl's sign negative and pivot shift test negative Results & Data Results & Data Diagnostic Findings Left Knee X-ray: left knee series confirm advanced degenerative changes to the left knee, greatest medial compartments and patellofemoral joint, showing joint space narrowing, osteophyte formation and subchondral sclerosis. no acute bony pathology noted.
[~2023-09-06 07:28] MED LIST: BUPIVACAINE 0.25% PF 30 ML VIAL ONE; BUPIVACAINE 0.5 % 5 MG/1 ML PF 10ML VIAL ONE
[2023-09-06] MEDS: ACETAMINOPHEN 500 MG TAB PO SCH ×2 (08:05→14:55)
[2023-09-06] MEDS: FAMOTIDINE 20 MG TAB PO SCH (08:05)
[2023-09-06] MEDS: METOCLOPRAMIDE HCL 10 MG TABLET PO SCH (08:05)
[2023-09-06] MEDS: oxyCODONE HCL 10 MG TABCR (OxyCONTIN) PO SCH (08:05)
[2023-09-06] MEDS: CeleBREX 200 MG CAP PO SCH (08:06)
[2023-09-06] MEDS: GABAPENTIN 300 MG CAP PO SCH (08:06)
[2023-09-06] MEDS: dexAMETHasone**PF** 10 MG/ML VIAL IV SCH (08:06)
[2023-09-06] MEDS: LR 60ML/HR IV SCH (08:06)
[2023-09-06] MEDS: LR 500ML BOLUS, THEN 15ML/HR IV SCH (08:35)
--- NOTE | 2023-09-06 08:54 | History & Physical Bridge Note ---
Date of Service September 06, 2023 History & Physical Bridge Note I have examined the patient, reviewed the History & Physical and in the interval since the performance of the History & Physical I have noted the following changes of clinical significance: no changes noted
[2023-09-06] MEDS ORDERED: MIDAZOLAM HCL 1 MG/ML 2ML VIAL ONE (08:58)
[2023-09-06] MEDS ORDERED: PROPOFOL IV EMULSION 10 MG/ML 20 ML VIAL IV ONE (08:58)
[2023-09-06] MEDS ORDERED: LIDOCAINE 2% 2 ML VIAL/AMP(20MG/ML) INFIL ONE (08:58)
[2023-09-06] MEDS ORDERED: ATROPINE SULFATE 0.1 MG/ML 10ML SYR IV PRN (09:08)
[2023-09-06] MEDS ORDERED: ONDANSETRON INJ 2 MG/ML 2 ML VIAL IV PRN ×2 (09:08→12:42)
[2023-09-06] MEDS ORDERED: ePHEDrine sulfate 50 MG/ML AMP IV PRN (09:08)
[2023-09-06] MEDS ORDERED: fentaNYL citrate PF 100 MCG/2 ML VIAL IV PRN (09:08)
[2023-09-06] MEDS: TRANEXAMIC ACID 1,000 MG **IV Pre-op IV SCH (09:51)
[2023-09-06] MEDS: CLINDAMYCIN/D5W 600 MG/50 ML BAG IV ONE (10:07)
[2023-09-06] MEDS: ROPIV 0.5% 246mg, Ketorolac 30mg, EPINEPHrine 0.5mg in NSS INFIL SCH (10:44)
[2023-09-06] MEDS: CLINDAMYCIN 600 MG/D5W 50 ML BAG IV ONE (10:46)
[2023-09-06] MEDS: ORTHO JOINT ANESTHETIC ONE (10:46)
[2023-09-06] MEDS ORDERED: PHENYLEPHRINE 100MCG/ML 10ML SYR IV ONE (10:51)
[2023-09-06] MEDS: TRANEXAMIC ACID 1,000 MG **IV Intra-op IV SCH (11:22)
--- NOTE | 2023-09-06 11:31 | Operative Report ---
Post Operative Report Pre & Post Diagnosis Operation Date: 09/06/23 09:20 Pre-Op Diagnosis: Left Knee Osteoarthritis Post-Op Diagnosis: Left Knee Osteoarthritis I identified the patient and participated in the time-out.: Yes Procedure Operation Date: 09/06/23 09:20 Actual Procedures p Left Total Knee Arthroplasty(Left)Utilizing [employer] journey 2 patient- matched total knee arthroplasty size femur 6 tibia 5 poly 9 patella 32 arpit - Lazaro Livingston DO Surgeon Lazaro Livingston DO Manufacturing Quality Engineer Marin GAY Estimated Blood Loss 10 Findings Consistent with Post-Op Diagnosis Patient presents with ongoing complaints of pain about the left knee and nonresponse to conservative management patient is eburnated [id number] marginal osteophyte subchondral sclerosis subchondral cystic changes Specimens Bone and cartilage Drains Medium bore Hemovac Anesthesia Type MAC Spinal Regional Complications none Disposition Accompanied Patient To Recovery: No Disposition: Recovery Room Indications Patient presents with severe end-stage tricompartmental DJD failing attempted conservative management physical therapy anti-inflammatories relative rest activity modification corticosteroid injection viscosupplementation Description of Procedure After proper prepping and draping of the left lower extremity anterior midline incision was made over the region of the extensor extensor mechanism after meticulous hemostasis was obtained and maintained in subcutaneous tissues a medial parapatellar incision was made The patella was subluxed lateralward the medial lateral gutter were cleaned from any hypertrophic synovitis and scar tissue of the distal femoral block was placed and the distal femoral osteotomy cut was made subsequently the chamfers anterior and posterior osteotomy cuts were made utilizing the 4-in-1 block the tibia was subsequently subluxed anteriorward medial and ateral meniscal remnants were excised in their entirety remnants of the anterior and posterior cruciate ligaments were excised in their entirety excellent exposure of the proximal tibia was obtained the tibial o steotomy guide was placed on the proximal tibial osteotomy cut was made once again the knee was irrigated with copious amounts of sterile saline solution the patella was subsequently everted lateralward thickened scar tissue around the patella was removed the patella was subsequently cut utilizing a freehand technique and was drilled prepared for final preparation and placement of patella socially flexion-extension gaps were checked and the equal and symmetric trials were placed to the appropriate femoral and tibial trials with poly-spacer being placed for equal flexion and extension gaps and full range of motion including extension to 0 and flexion to 140 the trial components after having been taken to recovery range of motion was subsequently removed meticulous hemostasis was obtained and maintained subsequently a knee block injection of joint cocktail including ropivacaine 0.5% 150 mg. Bupivacaine 0.5% epinephrine 1-200,030 mL's toradol 30 mg dexamethasone 4 mg ketamine 10 mg clonidine 100 micrograms normal saline solution 30 mg was infiltrated into the soft tissues of the posterior knee medial lateral gutters and periosteal synovium special attention was paid to protect neurovascular structures at all times subsequently trial components having been removed the knee was irrigated with sterile saline solution. debris was removed the proximal tibia was subsequently prepared and was made ready for the placement of the tibial component tibial component was also cemented and tamped into position the femoral component was subsequently placed and cemented in the position the patellar component was subsequently cemented in position because hemostasis once again obtained and maintained wound having been thoroughly irrigated with debridement and debridement lavage was performed as well as a medial parapatellar incision closed with #1 Vicryl in interrupted fashion subcutaneous was closed with #2 Vicryl skin was closed with skin clips. PA-C was necessary for prepping and drapping as well as wound closure of deep fascia Sub cutaneous tissue and skin and was necessary for the case. A sterile compressive dressing was placed patient was taken to recovery in stable condition of report dictated by Miki I attest to the content of the Intraoperative Record and any orders documented therein. Any exceptions are noted below.Due to the complex nature of the p rocedure, the entire surgery was performed with the operational assistance of VICTOR HUGO Palomares. The technical assistant, under direct supervision, was involved in the actual performance of all aspects of the surgical procedure including hemostasis, tissue retraction and incision, instrument management, patient positioning, and wound closure. I attest to the content of the Intraoperative Record and any orders documented therein. Any exceptions are noted below.
[2023-09-06] MEDS: ALLERGY Noted to ORDERED Medication SCH (12:35)
[2023-09-06] MEDS ORDERED: METOCLOPRAMIDE HCL INJ 5 MG/ML 2 ML VIAL IV PRN (12:42)
[2023-09-06] MEDS ORDERED: PHARMACY GLYCEMIC MGMT CONSULT PRN (12:42)
[2023-09-06] MEDS ORDERED: bisacodyL 10 MG SUPP PR PRN (12:42)
[2023-09-06] MEDS ORDERED: NALOXONE HCL 0.4 MG/1 ML VIAL/CARP IV PRN (12:42)
[2023-09-06] MEDS ORDERED: MAGNESIUM HYDROXIDE SUSP 30 ML UDC PO PRN (12:42)
[2023-09-06] MEDS ORDERED: diphenhydrAMINE Capsule 25 MG CAP PO PRN (12:42)
[2023-09-06] MEDS ORDERED: HYDROmorphone INJ 0.5 MG/0.5 ML SYR IV PRN (12:42)
[2023-09-06] MEDS ORDERED: GLUCOSE 10 TAB/TUBE PO PRN (13:15)
[2023-09-06] MEDS ORDERED: GLUCAGON FOR INJ 1 MG VIAL IM PRN (13:15)
[2023-09-06] MEDS ORDERED: CARBOHYDRATES FOR HYPOGLYCEMIA PO PRN (13:15)
[2023-09-06] MEDS ORDERED: DEXTROSE 50% 50 ML SYRINGE IV PRN (13:15)
[2023-09-06] MEDS ORDERED: GLUCOSE 40% GEL 15 GM TUBE PO PRN (13:15)
--- NOTE | 2023-09-06 13:15 | XRay Report ---
XR knee LT 1 or 2V routine HISTORY: 82 years-old Female Surgical Post Op left knee arthroplasty COMPARISON: None TECHNIQUE: 2 views of the left knee FINDINGS: Arterial calcifications. Total joint arthroplasty with patellar resurfacing. Surgical drainage cathet er. Anterior midline skin john with expected postoperative soft tissue swelling and deep tissue ai r. IMPRESSION: Total joint arthroplasty with expected postoperative changes. ACT 112: Negative or not required by law. The above report was generated using voice recognition software. It may contain grammatical, syntax o r spelling errors. Electronically signed by: Cristian Murphy M.D. 09/06/2023 1:13 PM
--- NOTE | 2023-09-06 13:20 | Pharmacy Report ---
Pharmacy Glycemic Short Note 2 - Date of Service September 06, 2023 - Glycemic Short BSG Results (Last 24 hours): 09/06/23 09/06/23 08:23 11:57 POC Glucose 140 H 162 H OUTPATIENT ANTIDIABETIC REGIMEN: * Tresiba 12 units hs, lispro 2 units bid, victoza, metformin, actos ASSESSMENT: * 82 year old s/p surgery, POD 0 - pharmacy consulted for glycemic management. Patient received IV dexamethasone preop, therefore anticipate steroid induced hyperglycemia. Postop BSG 162 mg/dL - plan to start novolog now. Will add on basal insulin ~0.2 units/kg x 1 now to help cover steroid effects. PLAN FOR INPATIENT GLYCEMIC CONTROL: * Hold outpatient oral diabetes medications * Basal insulin * Lantus 20 units x 1 * Bolus insulin * NovoLog per scale ACHS or Q6hrs while NPO * Goal Range: Low 110 mg/dL - High 140 mg/dL * Correction Factor: 20 mg/dL/unit * Nutritional / Prandial insulin per carb ratio of 1 unit per 7 grams CHO consumed
--- NOTE | 2023-09-06 14:19 | Hospitalist Consultation ---
Date of Consultation September 06, 2023 Assessment & Plan (1) Status post left knee replacement: -Patient is currently Post-op Day #0 S/P Left total knee replacement with Dr. Lazaro Livingston DO -Pain control, DVT PPX, IV fluids, and perioperative abx per the primary team -Agree with AM CBC and BMP, we will review -Continue to wean oxygen to RA, patient in no respiratory distress and denies SOB >If not able to wean to RA by this evening will obtain CXR -Continue BID Aspirin for DVT PPX -Please reach out with any other questions or concerns -Medicine will continue to follow (2) Hypertension: -Stable -HCTZ is on hold, can plan to resume on DC Nb: lisinopril initially prescribed was discontinued and removed off med list as patient no longer taking this since discontinued after last operation in March 2023 (3) Hyperlipidemia: -Continue statin (4) Diabetes mellitus, type 2: -Pharmacy Glycemic Consult placed -Care per pharmacy (5) GERD (gastroesophageal reflux disease): -Will start daily pantoprazole for stress ulcer PPX Plan The patient was discussed with Dr. Jose at the time of the consult Supervising Physician Co-Signing Physician Notes I personally saw and examined the patient. I verified all posadas points and agree with Jared Willingham PA-C with the following exceptions and/or additions: 82 year old female POD#0 left TKA. EBL 10ml. Of note lisinopril and HCTZ discontinued following prior right TKA in Mar 2023. She resumed HCTZ following this due to leg swelling more than her BP (currently on 25mg PO daily, last taken yesterday) O/E HS RRR, no murmurs, Chest CTAB. Abdo SNT normal sensation in feet b/l A/P VTE / Bowel / Pain management per primary orthopedic team HTN - defer restarting HCTZ for now given her low normal BP, may need to just resume when ok from PCP as per last admission T2DM - HbA1C 7.4 in August. Pharmacy managing glucose during inpatient admission. No anticipated changes to be made on discharge. Agree with pantoprazole DON during admission but no need to continue on discharge History of Present Illness Reason for Consultation: Post-op medical management Requesting Physician: Lazaro Livingston DO Attending Physician: Dr. Nirmal Jose History of Present Illness Roopa Greenfield is a 82 year old female with a PMH significant for HTN, hyperlipidemia, DMII, GERD, and arthritis who presented to the [facility] OR on 09/06/23 for scheduled Left Total Knee Arthroplasty with Dr. Lazaro Livingston. Per the operative report, EBL was listed as 10 cc, anesthesia was listed as "MAC Spinal Regional", and there were no reported intraoperative complications. We were consulted for post-operative medical management. At the time of the exam the patient was sitting in bed in no acute distress, currently eating lunch. States she is feeling well after her procedure. Slowly regaining strength in her LLE, denies pain. Only took her am aspirin prior to arrival. Does not use home O2 or CPAP at home. Denies current fever, chills, chest pain, SOB, cough, abd pain, nausea, vomiting, diarrhea, dysuria, hematuria, melena. Please refer to Dr. Jose's attestation for any changes to the treatment plan Allergies Allergy/AdvReac Type Severity Reaction Status Date / Time cephalexin [From Keflex] Allergy Mild Rash Verified 09/06/23 08:00 Home Medications Medication Instructions Recorded Confirmed Type atorvastatin 40 mg tablet (Lipitor) 40 mg PO HS 02/17/23 09/06/23 History insulin degludec 100 unit/mL (3 12 unit subcut QPM 02/17/23 09/06/23 History mL) subcutaneous pen (Tresiba FlexTouch U-100 insulin) insulin lispro 100 unit/mL 2 unit subcut BID 02/17/23 09/06/23 History subcutaneous pen liraglutide 0.6 mg/0.1 mL (18 mg/3 1.8 mg subcut QAM 02/17/23 09/06/23 History mL) subcutaneous pen injector (Victoza 2-Felipe) magnesium oxide 250 mg PO QAM 02/17/23 09/06/23 History metformin 500 mg tablet 1,000 mg PO BID 02/17/23 09/06/23 History pioglitazone 30 mg tablet (Actos) 30 mg PO QAM 02/17/23 09/06/23 History potassium gluconate 595 mg (99 mg) 595 mg PO QAM 02/17/23 09/06/23 History tablet polyethylene glycol 3350 17 gram 17 g PO DAILY PRN constipation #5 03/22/23 09/06/23 Rx oral powder packet (Miralax) ea aspirin 81 mg capsule 81 mg PO QAM 08/02/23 09/06/23 History acetaminophen 500 mg tablet 1,000 mg (2 x 500 mg) PO Q8 pain 09/06/23 Rx 21 days #126 tabs aspirin 81 mg tablet,delayed 81 mg PO BID 30 days #60 tabs 09/06/23 Rx release clindamycin HCl 300 mg capsule 300 mg PO TID 7 days #21 caps 09/06/23 Rx docusate sodium 100 mg capsule 100 mg PO BID #20 caps 09/06/23 Rx hydrochlorothiazide 50 mg tablet 25 mg PO QAM 09/06/23 09/06/23 History oxycodone 5 mg tablet 5 - 10 mg (1 - 2 x 5 mg) PO Q6H 09/06/23 Rx PRN pain #30 tabs Patient History Medical History Racing heart beat Occasional heart racing x years, patient notes previous cardiology work-up unremarkable and was d/c by cardiology-denies dizziness/lightheadedness/chest discomfort/shortness of breath Edema legs bilat, occasional, re-started on hydrochlorothiazide by PCP with improvement in edema GERD (gastroesophageal reflux disease) rare, diet related History of kidney stones 10 yrs ago Diabetes mellitus, type 2 IDDM Peripheral neuropathy feet Hypertension controlled, stable per pt Hyperlipidemia Surgical History Status post total knee replacement Right TKA with Left knee steroid injection (03/22/23): SAB x2 attempts + regional at [facility] History of removal of ovarian cyst History of arthroscopy right shoulder right hip History of cystoscopy History of lithotripsy History of esophagogastroduodenoscopy (EGD) History of colonoscopy History of cholecystectomy History of appendectomy History of tooth extraction History of tonsillectomy and adenoidectomy History of cataract surgery R/L Family History Other No family history of adverse response to anesthesia Social History Smoking Status: Never smoker Second Hand Exposure: No; Do You Dip or Chew Tobacco: No; Tobacco Cessation Education Requested by Patient: No Hx Alcohol Use: No Hx Substance Use: No Preferred Language: Ethiopian Communication Ability: Effective Graduate Student Required: No Beliefs That Will Affect Care: None Current Living Situation: Spouse Other Information That Helps Us Care for You: No Feels Safe at Home: Yes Safety Concerns: Feels Safe At This Time Assistive Devices: Glasses Physical Exam Physical Exam: Physical Exam: General: In no acute distress, stated age, well-nourished, good hygiene HEENT: Normocephalic, atraumatic, no scleral icterus, pupils around round, symmetrical, and reactive to light, NC currently in place, moist mucus membranes, trachea midline, no thyromegaly Chest/Pulm: No respiratory distress, symmetrical chest expansion, clear breath sounds throughout Cardiac: RRR, no murmurs noted Abdomen: Negative for ascites and bruising, normoactive bowel sounds, soft, non-tender to palpation throughout Musculoskeletal: LLE is currently wrapped with ice in place, no signs of drainage, intact sensation and strength in the BL LE's Extremities: Radial, dorsalis pedis, and posterior tibial pulses are intact and symmetrical, BL SCD's in place on LE's Skin: Warm, dry, no rashes , lesions, or scars noted Neuro: Alert and oriented to person, place, month, year, and president, no focal defects, no tremors noted Psych: No acute distress, calm and cooperative during the exam Results & Data Results & Data Vital Signs (Past 12 Hours) Vital Signs Temp Pulse Pulse Resp BP BP Pulse Ox 09/06/23 13:43 36.4 C L 67 16 102/61 96 09/06/23 13:14 36.3 C L 70 16 114/72 96 09/06/23 12:43 36.4 C L 73 18 119/78 98 09/06/23 12:30 73 16 122/61 96 09/06/23 12:20 36.4 C L 75 16 127/69 96 09/06/23 12:10 75 16 126/63 93 09/06/23 12:00 77 16 122/41 L 98 09/06/23 11:51 36.3 C L 75 17 129/60 100 09/06/23 07:57 36.6 C 89 20 141/83 H 96 O2 Del Method O2 Flow Rate 09/06/23 13:43 Nasal Cannula 2 09/06/23 13:14 Room Air 09/06/23 12:43 Room Air 09/06/23 12:30 Room Air 09/06/23 12:20 Room Air 09/06/23 12:10 Room Air 09/06/23 12:00 Oxymask 5 09/06/23 11:51 Oxymask 5 09/06/23 07:57 Room Air Laboratory Results Abnormal lab results 09/06/23 09/06/23 Range/Units 08:23 11:57 POC Glucose 140 H 162 H (70-99) mg/dl Diagnostic Findings Knee X-Ray 09/06/23 10:28 XR knee LT 1 or 2V routine HISTORY: 82 years-old Female Surgical Post Op left knee arthroplasty COMPARISON: None TECHNIQUE: 2 views of the left knee FINDINGS: Arterial calcifications. Total joint arthroplasty with patellar resurfacing. Surgical drainage catheter. Anterior midline skin john with expected postoperative soft tissue swelling and deep tissue air. IMPRESSION: Total joint arthroplasty with expected postoperative changes. ACT 112: Negative or not required by law. The above report was generated using voice recognition software. It may contain grammatical, syntax or spelling errors. Electronically signed by: Cristian Murphy M.D. 09/06/2023 1:13 PM PG Care Time/CCT Total # of Minutes Spent Total Time Spent with Patient: Total time spent is greater than 50% in coordination of care (as documented) at patient's floor/unit and/or counseling patient: Coding [place] [address] IN/OBS CONSULT LVL 4,60M Patient Type Established Medical Decision Making Moderate Complexity Diagnoses Status post left knee replacement Z96.652 Hypertension I10 Hyperlipidemia E78.5 Diabetes mellitus, type 2 E11.9 GERD (gastroesophageal reflux disease) K21.9
[2023-09-06] MEDS: SODIUM CHLORIDE 0.9% 1,000 ML IV SCH (14:54)
[2023-09-06] MEDS: INSULIN ASPART PER UNIT CHARGE SC SCH (14:59)
[2023-09-06] MEDS: PANTOprazole 40 MG TAB PO STA (15:08)
--- NOTE | 2023-09-06 16:05 | Anesthesiology Progress Note ---
Date of Service September 06, 2023 Anesthesia Post Procedure Vital Signs Vital Signs: Temp Pulse Pulse Resp BP BP Pulse Ox 09/06/23 15:50 36.2 C L 69 16 104/70 90 09/06/23 14:52 36.3 C L 73 18 121/75 95 09/06/23 13:43 36.4 C L 67 16 102/61 96 09/06/23 13:14 36.3 C L 70 16 114/72 96 09/06/23 12:43 36.4 C L 73 18 119/78 98 09/06/23 12:30 73 16 122/61 96 09/06/23 12:20 36.4 C L 75 16 127/69 96 09/06/23 12:10 75 16 126/63 93 09/06/23 12:00 77 16 122/41 L 98 09/06/23 11:51 36.3 C L 75 17 129/60 100 09/06/23 07:57 36.6 C 89 20 141/83 H 96 O2 Del Method O2 Flow Rate 09/06/23 15:50 Nasal Cannula 1 09/06/23 14:52 Nasal Cannula 2 09/06/23 13:43 Nasal Cannula 2 09/06/23 13:14 Room Air 09/06/23 12:43 Room Air 09/06/23 12:30 Room Air 09/06/23 12:20 Room Air 09/06/23 12:10 Room Air 09/06/23 12:00 Oxymask 5 09/06/23 11:51 Oxymask 5 09/06/23 07:57 Room Air Pain Intensity Left Knee: Pain Intensity: 0 Transfer of Care Handoff Completed per policy Notes Mental Status: alert / awake / arousable Patient Amnestic to Procedure: Yes Nausea / Vomiting: adequately controlled Pain: adequately controlled Airway Patency, RR, SpO2: stable & adequate BP & HR: stable & adequate Hydration State: stable & adequate Neuraxial Anesthesia: was administered and sensory block is resolving Anesthetic Complications: no major complications apparent and Pt Satisfied with anesthetic care
[2023-09-06] MEDS: oxyCODONE HCL IR 5 MG TAB (IMMEDIATE RELEASE) PO PRN (16:43)
[2023-09-06] MEDS: LANTUS PER UNIT CHARGE SC SCH (17:29)
[2023-09-06] MEDS: CLINDAMYCIN/D5W 600 MG/50 ML BAG IV SCH (17:40)
[2023-09-06] MEDS: ATORVASTATIN 40 MG TAB PO SCH (20:27)
[2023-09-06] MEDS: SENNA 8.6 MG TAB PO SCH (20:27)
[2023-09-06] MEDS: DOCUSATE SODIUM 100 MG CAP PO SCH (20:27)
[2023-09-06] MEDS: ASPIRIN 81 MG ECTAB PO SCH (20:27)
[2023-09-06] MEDS ORDERED: NON-FORMULARY MEDICATION (Insulin Lispro 100 unit/mL Insulin Pen) SQ SCH (21:00)
[2023-09-06] MEDS ORDERED: NON-FORMULARY MEDICATION (Insulin Degludec [Tresiba Flextouch U-100] 100 unit/mL (3 mL) In SQ SCH (21:00)
[2023-09-07] MEDS: INSULIN ASPART PER UNIT CHARGE SC SCH (00:21)
--- NOTE | 2023-09-07 06:50 | Orthopedic Progress Note ---
Date of Service September 07, 2023 Assessment & Plan (1) Status post left knee replacement: Plan: POD #1 s/p left TKA pt/ot dvt proph with YARELIS/SCD/ASA plan for d/c home with HHPT Admission and Anticipated Discharge Date Admission Date: September 06, 2023 Subjective POD #1 s/p Left TKA Review of Systems Constitutional: no fever, no chills and no sweats Respiratory: no cough and no dyspnea Cardiovascular: no chest pain and no dyspnea Gastrointestinal: no abdominal pain, no nausea and no vomiting Physical Exam Physical Exam: Vital Signs Temp 36.3 C L 09/07/23 03:30 Pulse 67 09/07/23 03:30 Resp 16 09/07/23 03:30 BP 102/63 09/07/23 03:30 Pulse Ox 95 09/07/23 03:30 O2 Del Method Room Air 09/07/23 03:30 O2 Flow Rate 1 09/06/23 15:50 Intake & Output 09/06/23 09/06/23 09/07/23 06:59 18:59 06:59 Intake Total 1700 / 3301.667 1601.667 / 3301.66 7 Output Total 65 / 160 95 / 160 Balance 1635 / 3141.667 1506.667 / 3141.66 7 Weight 102.8 kg Intake: IV 300 / 4132.905 2927.667 / 1901.66 7 Clindamycin/D5 w 600 mg In 50 ml 100 / 150 50 / 150 @ 100 mls/hr I V Q8H DON Rx#: [id number] Lactated Ringe r's 1,000 ml @ 15 0 / 0 mls/hr IV .Q24 H DON Rx#: [id number] Sodium Chlorid e 0.9% 1,000 ml @ 1551.667 / 1551.66 7 100 mls/hr IV .Q10H DON Rx#: [id number] Tranexamic Aci d / 0.7% NaCl 1, 200 / 200 000 mg In 100 ml @ 600 mls/hr IV TODAY@0600 DON Rx#:[id number] IV Perioperative 1300 / 1300 Oral 100 / 100 Output: Estimated Blood Loss 10 / 10 Drain Output 55 / 150 95 / 150 Left Knee Hemo vac 55 / 150 95 / 150 Other: # Unmeasured Voi ds 1 1 Weight Measureme nt Method Standing Scale Musculoskeletal: Left Leg: NVDI, calf SNT, negative rebecca sign. DP palpable, able to wiggle toes/ankle movement without difficulty. dressing clean dry and intact. Results & Data Vital Signs (Past 12 Hours) Vital Signs Temp Pulse Resp BP Pulse Ox O2 Del Method 09/07/23 03:30 36.3 C L 67 16 102/63 95 Room Air 09/06/23 23:53 36.2 C L 70 16 107/65 95 Room Air 09/06/23 20:23 36.3 C L 68 16 104/64 98 Room Air Laboratory Results Laboratory Results POC Glucose 175 mg/dl (70-99) H 09/07/23 03:30 Impressions Knee X-Ray 09/06/23 10:28 XR knee LT 1 or 2V routine HISTORY: 82 years-old Female Surgical Post Op left knee arthroplasty COMPARISON: None TECHNIQUE: 2 views of the left knee FINDINGS: Arterial calcifications. Total joint arthroplasty with patellar resurfacing. Surgical drainage catheter. Anterior midline skin john with expected postoperative soft tissue swelling and deep tissue air. IMPRESSION: Total joint arthroplasty with expected postoperative changes. ACT 112: Negative or not required by law. The above report was generated using voice recognition software. It may contain grammatical, syntax or spelling errors. Electronically signed by: Cristian Murphy M.D. 09/06/2023 1:13 PM
--- NOTE | 2023-09-07 07:14 | Discharge Summary ---
Date of Service date of discharge: September 07, 2023 date of admission: 09/06/23 Admission HPI Per Admitting Provider Roopa is an 82-year-old female who presented for preop evaluation prior to upcoming left total knee arthroplasty. She has a longstanding history of left knee pain which gradually worsened and is now affecting his daily activities, rates her current pain as a 7 out of 10. She has tried and failed prior cortisone injection as well as viscosupplementation with no improvement. She has tried oral anti-inflammatories and Tylenol as well. At this point time is failed conservative measures and wishes to proceed with left total knee arthroplasty Principal Diagnosis left knee replacement Discharge Exam Vital Signs Temp 36.3 C L 09/07/23 03:30 Pulse 67 09/07/23 03:30 Resp 16 09/07/23 03:30 BP 102/63 09/07/23 03:30 Pulse Ox 95 09/07/23 03:30 O2 Del Method Room Air 09/07/23 03:30 O2 Flow Rate 1 09/06/23 15:50 Intake & Output 09/06/23 09/07/23 09/07/23 18:59 06:59 18:59 Intake Total 1700 / 3301.667 1601.667 / 3301.667 Output Total 65 / 160 95 / 160 Balance 1635 / 3141.667 1506.667 / 3141.667 Weight 102.8 kg Intake: IV 300 / 4951.582 3103.667 / 1901.667 Clindamycin/D5w 600 mg In 50 ml 100 / 150 50 / 150 @ 100 mls/hr IV Q8H DON Rx#: [id number] Lactated Ringer's 1,000 ml @ 15 0 / 0 mls/hr IV .Q24H DON Rx#: [id number] Sodium Chloride 0.9% 1,000 ml @ 1551.667 / 1551.667 100 mls/hr IV .Q10H DON Rx#: [id number] Tranexamic Acid / 0.7% NaCl 1, 200 / 200 000 mg In 100 ml @ 600 mls/hr IV TODAY@0600 DON Rx#:[id number] IV Perioperative 1300 / 1300 Oral 100 / 100 Output: Estimated Blood Loss 10 / 10 Drain Output 55 / 150 95 / 150 Left Knee Hemovac 55 / 150 95 / 150 Other: # Unmeasured Voids 1 1 Weight Measurement Method Standing Scale Musculoskeletal left knee: NVDI, calf SNT, negative rebecca sign. DP palpable, able to wiggle toes/ankle movement without difficulty. dressing clean dry and intact. Discharge Data Allergies Allergy/AdvReac Type Severity Reaction Status Date / Time cephalexin [From Keflex] Allergy Mild Rash Verified 09/06/23 08:00 Consultations 09/06/23 12:42 Consult Hospitalist Routine Procedures Performed Operation Date: 09/06/23 09:20 Actual Procedures p Left Total Knee Arthroplasty(Left) - Lazaro Kingston DO Ordered Studies 09/06/23 05:00 US - OR guided needle placemen Routine Hospital Course (1) Status post left knee replacement: POD #1 s/p left TKA pt/ot dvt proph with YARELIS/SCD/ASA plan for d/c home with HHPT Total Time Total Time Spent Total Time Spent (In Minutes): 20 Discharge Plan Discharge Items Patient Disposition: Home - Home Health Services Reason For Visit: Left Knee Osteoarthritis Discharge Diagnosis: LEFT TOTAL KNEE REPLACEMENT Activity: Per Instructions section Weightbearing Comment: WBAT WITH WALKER Non-emergency contact: Surgeon Call non-emergency contact if: you have any medication questions, your tempera ture is above 101, your wound has increased redness, your wound has increased drainage and your wound pain has increased Follow-up/Referrals: Olivia Casey M.D. [Primary Care Provider] - Diet: Carb Consistent or DM2 Addtl Attending Provider Instructions: ACTIVITY RECOMMENDATIONS: SELF CARE INSTRUCTIONS AFTER TOTAL KNEE REPLACEMENT A. You may need to continue a physical therapy program after discharge from the hospital. There are several options available to you. Your doctor will assist you in selecting the best one for you. 1. An out-patient facility 2 to 3 times a week for therapy or home therapy. 2. Continue working on all exercises taught to you in the hospital. Your goals should be to increase bending of your knee to 90 degrees and beyond and to fully straighten your knee. B. You may progress at your own pace from walking with a walker or crutches to a cane; then to no assistive devices. C. Make walking a part of your daily routine. Be up as much as comfortable with rest periods throughout the day. Rest with leg elevation is very important. Use the ice wrap frequently for the first 3-4 weeks. D. There are no restrictions on activities. You may ride in a car, shop, participate in elastic attacher overlock and all social activities. E. Wear the long elastic stockings (YARELIS hose) 20 hours a day for 2 weeks after surgery. They can be removed several times a day for laundering and for a bath. F. You may shower, no tub baths until cleared by your doctor. SPECIAL CARE INSTRUCTIONS: VERY IMPORTANT TO READ AND REVIEW A. There are a few signs you need to watch for after you are home. Call [facility] if you notice any of the followin. Increased severe knee pain. Some pain is expected especially when you exercise. 2. Increased swelling in your leg or knee; pain or swelling of the calf muscle in either lower leg. 3. Any fluid drainage from the incision. 4. Shortness of breath or chest pain. B. Please call [facility] at if you have any concerns or questions about your operation or recovery. The doctor or his nurse will return your call promptly. C. You must take antibiotics before dental work, bladder, bowel or other surgery. Your doctor will provide you with a permanent care to carry describing this precaution. IMPORTANT: * REMEMBER TO TAKE ASPIRIN, 81 MG, TWICE DAILY FOR 4 WEEKS UNLESS OTHERWISE DIRECTED. THIS IS YOUR BLOOD THINNER. * HIGH RISK PATIENTS MAY BE PRESCRIBED A STRONGER BLOOD THINNER. THIS WILL BE PROVIDED AT DISCHARGE. * CALL IF INCREASED PAIN, REDNESS, DRAINAGE OR FEVER GREATER THAT 101. * WEAR YARELIS HOSE 20 HOURS PER DAY FOR 2 WEEKS. DRESSING INSTRUCTIONS * FORREST Dressing- This is a large suction dressing covering your incision. This will help pull any excess drainage from the wound and allow your incision to heal properly. You may shower with this if you can keep the unit outside of the shower. If any bleeding or leakage is noted please call your doctor's office. This will remain on your incision for 7 days and then should be removed. This can be done yourself or by the home nursing staff if applicable. The entire unit is disposable once removed. Once removed, keep incision clean and dry. If redness or drainage is noted, please call your surgeon. ONCE FORREST IS REMOVED, FOLLOW THESE INSTRUCTIONS: DERMABOND Prineo- This is a mesh tape dressing that is covered with glue. It should remain in place until the incision is properly healed, usually 10-14 days. This dressing is designed to naturally slough off. You may trim the excess mesh tape as it peels off. Incision may be briefly wet in a shower. Dry immediately by blotting with a clean, dry towel. Do not bath or swim until instructed by your doctor. Do not scratch, rub, or pick at the dressing. Do not apply any topical ointments or lotions until dressing is completely removed and/or instructed by your doctor. There may be a small piece of suture material at one end of your incision. Do not pull or trim this. If it is bothersome or catching on clothing, you may cover it with a band-aid. IF INCISION IS LEAKING THROUGH DRESSING, CALL THE OFFICE . FOLLOW UP VISIT: If appointment is not already scheduled: Please call [facility] to make a follow-up appointment for 2 weeks after your surgery at . Pending Studies at Discharge: No Stand-Alone Forms: My [facility] Medications and DC Order Prescriptions: New clindamycin HCl 300 mg capsule 300 mg PO TID 7 Days Qty: 21 0RF aspirin 81 mg tablet,delayed release (DR/EC) 81 mg PO BID 30 Days Qty: 60 0RF acetaminophen 500 mg tablet 1,000 mg PO Q8 21 Days Qty: 126 0RF docusate sodium 100 mg Capsule 100 mg PO BID Qty: 20 0RF oxycodone 5 mg tablet 5 - 10 mg PO Q6H PRN (Reason: pain) Qty: 30 0RF Rx Instructions: ongoing therapy, supervising dr estela kingston. max 6 tabs in 24 hours. date of surgery 09/06/23 Continued atorvastatin [Lipitor] 40 mg Tablet 40 mg PO HS metformin 500 mg Tablet 1,000 mg PO BID pioglitazone [Actos] 30 mg Tablet 30 mg PO QAM magnesium oxide 250 mg magnesium Tablet 250 mg PO QAM insulin lispro 100 unit/mL Insulin Pen 2 unit SUBCUT BID potassium gluconate 595 mg (99 mg) Tablet 595 mg PO QAM Victoza 2-Felipe 0.6 mg/0.1 mL (18 mg/3 mL) Pen Injector 1.8 mg SUBCUT QAM insulin degludec [Tresiba FlexTouch U-100] 100 unit/mL (3 mL) Insulin Pen 12 unit SUBCUT QPM polyethylene glycol 3350 [Miralax] 17 gram powder in packet 17 g PO DAILY PRN (Reason: constipation) Qty: 5 0RF Held hydrochlorothiazide 50 mg tablet 25 mg PO QAM Hold Instructions: Resume on 09/20/23. until discussed with primary care to resume Discontinued aspirin 81 mg Capsule 81 mg PO QAM Krames/Other Patient Handouts: Knee Replace Home Recovery Admission Data Admit Date/Time: 09/06/23 10:28 Attending Provider: Lazaro Kingston Admit Provider: Lazaro Kingston Primary Care Provider: Olivia Casey Other Providers: Roderick Alcantar; Milly Lopez; Nirmal Hartley; Toby Amado; Lazaro Lux; Mckinley Samson; Jana Alegria; Rebeca Ascencio; Samiar Donaldson; Jared Willingham; Nhan Cardona; Paige Luna; Taiwo Schmitt; Nirmal Jose; Arnulfo Sanchez; Mariza Rabago; Marlee Galloway; Luis A Higgins; Vika Frias; Wero Sol; Quoc Aldana; Annalisa Cruz; Marsha Hernández; Janet Reyes; Irwin Zaman; Anish Mcclellan; Toby Saucedo; Lazaro West; Carmen Dale Other Interventions: Discharge Summary Assessment (RN) Last Done: 09/07/23 09:34
[2023-09-07 07:31] LABS: Hematocrit (blood only) 27.9 % (37.0-47.0); Hemoglobin 8.9 g/dl (12.0-16.0); Mean Corpuscular Hemoglobin 26.8 pg (25.0-34.0); Mean Corpuscular Hgb Conc 31.9 g/dL (32.0-36.0); Mean Platelet Volume 9.8 fL (9.4-12.4); Platelet Count 193 K/uL (130-400); RDW Coefficient of Variation 15.2 % (11.5-14.5); RDW Standard Deviation 46.2 fL (36.4-46.3); Red Blood Count 3.32 M/uL (4.20-5.40); White Blood Count 12.75 K/ul (4.8-10.8)
[2023-09-07 07:48] LABS: BUN Creatinine Ratio 35.7 (10-20); Calcium 8.2 mg/dl (8.6-10.3); Creatinine Clr Calc Pharmacy 44.8 ml/min; Est GFR (Non-African American) 45.7 ml/min; Potassium 4.1 mmol/L (3.5-5.1)
[2023-09-07] MEDS: PANTOprazole 40 MG TAB PO SCH (08:23)
[2023-09-07] MEDS: MULTIVITAMIN TAB PO SCH (08:24)
[2023-09-07] MEDS: MAGNESIUM OXIDE 400 MG TAB PO SCH (08:24)
--- NOTE | 2023-09-07 08:42 | Hospitalist Progress Note ---
Date of Service September 07, 2023 Assessment & Plan (1) Status post left knee replacement: Plan: s/p Left Total Knee Arthroplasty(Left)Utilizing [employer] 2 patient-matched total knee arthroplasty size femur 6 tibia 5 poly 9 patella 32 arpit Livingston, DO on 09/05 WBC elevation suspected 2nd to surgery/stress/steroids. Hgb 10.9--> 8.9, acute blood loss anemia in setting of surgery (EBL 10cc. Drain output 150cc thus far) but also some dilutional aspect contributing from IVF post-operatively. BP 97/59, asymptomatic, no CP/SOB/lightheadedness --> Would have patient hold her HCTZ until seen by PCP in follow up. Notable had her HCTZ/lisinopril dc after prior surgery, only resumed HCTZ due to swelling and not BP. Pain control/bowel regimen per primary service PT/OT consults pending but seen by PT and cleared for home and planning for dc after seen by OT. DVT proph: ASA 81mg BID, protonix while inpatient for GI proph Hospitalist service will sign off at this time. Please call with any questions/concerns. (2) Hypertension: Plan: Chronic, stable and has been WELL controlled off her lisinopril since left knee surgery in March 2023 ASYMPTOMATIC with her BPs 97/59 this morning, did well with therapy and no CP/SOB, lightheadedness or hypoxia --> HCTZ placed on hold and continue to hold at discharge discussed --> to monitor her BPs at home and defer to PCP on timing to resume (3) Hyperlipidemia: Plan: Chronic, stable continue home statin (4) Diabetes mellitus, type 2: Plan: Pharmacy consulted while inpatient for glycemic management BSGs stable in setting of steroids (5) GERD (gastroesophageal reflux disease): Plan: Protonix daily for GI proph while on ASA inpatient, no issues reported Plan Thank you for allowing hospitalist service to participate in the care of Ms Greenfield. Hospitalist service will sign off at this time. Please call with any questions/concerns. Admission and Anticipated Discharge Date Admission Date: September 06, 2023 Supervising Physician Co-Signing Physician Notes The patient was not seen by me. The chart was reviewed. Case discussed with VICTOR HUGO Moore. Agree with assessment and plan Subjective Evaluated this morning, doing well. Looks great. Worked with therapy, no lightheaded/dizziness, CP/SOB. BP has been excellent, prior stopped lisinopril w/ her prior surgery for her RIGHT knee in March and discussed holding off her HCTZ for now and monitoring her BPs at home and discuss w/ PCP about resuming this. Waiting to work with OT but planning dc today w/ hemovac removal prior to dc. She notes she had the prevena last time at dc and removed after discharge. Eating/drinking no issue, no nausea/vomiting. Questions/concerns addressed. Physical Exam Physical Exam: General 82yo female sitting up in chair, NAD, worked with therapy, looks good HEENT head atraumatic, normocephalic, mmm, tracea midline Resp; Even/unlabored, no w/c/r, on room air CV: RRR, no significant m/r/g, no pitting edema/calf tenderness, pulses palpable GI: +BS, soft/NT : no akbar MSK/Neuro: dressing to LEFT knee c/d/i, ferny wrap in place, hemovac w/ bloody drainage, prevena with green light. sensation intact, toes mobile, toes palpable, strength dorsiflexion/plantarflexion intact Psych: AOx3, pleasant and cooperative with exam Results & Data Results & Data Vital Signs (Past 12 Hours) Vital Signs Temp Pulse Resp BP BP Pulse Ox O2 Del Method 09/07/23 07:36 36.4 C L 61 18 97/59 L 95 Room Air 09/07/23 03:30 36.3 C L 67 16 102/63 95 Room Air 09/06/23 23:53 36.2 C L 70 16 107/65 95 Room Air Laboratory Results 09/07/23 09/07/23 09/07/23 Range/Units 07:52 07:03 03:30 WBC 12.75 H (4.8-10.8) K/ul RBC 3.32 L (4.20-5.40) M/uL Hgb 8.9 L (12.0-16.0) g/dl Hct 27.9 L (37.0-47.0) % MCV 84.0 (80.0-100.0) fL MCH 26.8 (25.0-34.0) pg MCHC 31.9 L (32.0-36.0) g/dL RDW Std Deviation 46.2 (36.4-46.3) fL RDW Coeff of Mildred 15.2 H (11.5-14.5) % Plt Count 193 (130-400) K/uL MPV 9.8 (9.4-12.4) fL Sodium 134 L (136-145) mmol/L Potassium 4.1 (3.5-5.1) mmol/L Chloride 104 (98-107) mmol/L Carbon Dioxide 25 (21-32) mmol/L Anion Gap 5 (3-11) BUN 40 H (6-23) mg/dl Creatinine 1.12 (0.6-1.2) mg/dl Est Cr Clr Drug Dosing 44.8 ml/min Est GFR ( Amer) 53.0 ml/min Est GFR (Non-Af Amer) 45.7 ml/min BUN/Creatinine Ratio 35.7 H (10-20) Glucose 163 H (70-99(Fasting)) mg/dl POC Glucose 140 H 175 H (70-99) mg/dl Calcium 8.2 L (8.6-10.3) mg/dl 09/07/23 09/06/23 09/06/23 Range/Units 00:15 21:04 16:51 WBC (4.8-10.8) K/ul RBC (4.20-5.40) M/uL Hgb (12.0-16.0) g/dl Hct (37.0-47.0) % MCV (80.0-100.0) fL MCH (25.0-34.0) pg MCHC (32.0-36.0) g/dL RDW Std Deviation (36.4-46.3) fL RDW Coeff of Mildred (11.5-14.5) % Plt Count (130-400) K/uL MPV (9.4-12.4) fL Sodium (136-145) mmol/L Potassium (3.5-5.1) mmol/L Chloride (98-107) mmol/L Carbon Dioxide (21-32) mmol/L Anion Gap (3-11) BUN (6-23) mg/dl Creatinine (0.6-1.2) mg/dl Est Cr Clr Drug Dosing ml/min Est GFR ( Amer) ml/min Est GFR (Non-Af Amer) ml/min BUN/Creatinine Ratio (10-20) Glucose (70-99(Fasting)) mg/dl POC Glucose 225 H 193 H 218 H (70-99) mg/dl Calcium (8.6-10.3) mg/dl 09/06/23 Range/Units 11:57 WBC (4.8-10.8) K/ul RBC (4.20-5.40) M/uL Hgb (12.0-16.0) g/dl Hct (37.0-47.0) % MCV (80.0-100.0) fL MCH (25.0-34.0) pg MCHC (32.0-36.0) g/dL RDW Std Deviation (36.4-46.3) fL RDW Coeff of Mildred (11.5-14.5) % Plt Count (130-400) K/uL MPV (9.4-12.4) fL Sodium (136-145) mmol/L Potassium (3.5-5.1) mmol/L Chloride (98-107) mmol/L Carbon Dioxide (21-32) mmol/L Anion Gap (3-11) BUN (6-23) mg/dl Creatinine (0.6-1.2) mg/dl Est Cr Clr Drug Dosing ml/min Est GFR ( Amer) ml/min Est GFR (Non-Af Amer) ml/min BUN/Creatinine Ratio (10-20) Glucose (70-99(Fasting)) mg/dl POC Glucose 162 H (70-99) mg/dl Calcium (8.6-10.3) mg/dl Diagnostic Findings Knee X-Ray 09/06/23 10:28 XR knee LT 1 or 2V routine HISTORY: 82 years-old Female Surgical Post Op left knee arthroplasty COMPARISON: None TECHNIQUE: 2 views of the left knee FINDINGS: Arterial calcifications. Total joint arthroplasty with patellar resurfacing. Surgical drainage catheter. Anterior midline skin john with expected postoperative soft tissue swelling and deep tissue air. IMPRESSION: Total joint arthroplasty with expected postoperative changes. ACT 112: Negative or not required by law. The above report was generated using voice recognition software. It may contain grammatical, syntax or spelling errors. Electronically signed by: Cristian Murphy M.D. 09/06/2023 1:13 PM PG Care Time/CCT Total # of Minutes Spent Total Time Spent with Patient: Total time spent is greater than 50% in coordination of care (as documented) at patient's floor/unit and/or counseling patient: Coding Level of Care Code 10162 SUB INP/OBS CARE 2/35MIN Diagnoses Status post left knee replacement Z96.652 Hypertension I10 Hyperlipidemia E78.5 Diabetes mellitus, type 2 E11.9 GERD (gastroesophageal reflux disease) K21.9
[2023-09-07] MEDS ORDERED: NON-FORMULARY MEDICATION (Potassium Gluconate 595 mg (99 mg) Tablet) PO SCH (09:00)
[2023-09-07] MEDS ORDERED: NON-FORMULARY MEDICATION (Pioglitazone [Actos] 30 mg Tablet) PO SCH (09:00)
[2023-09-07] MEDS ORDERED: NON-FORMULARY MEDICATION (Liraglutide [Victoza 2-Pak] 0.6 mg/0.1 mL (18 mg/3 mL) Pen Injec SQ SCH (09:00)
[2023-09-07] MEDS ORDERED: lisinopril 2.5 MG TAB PO SCH (09:00)
== END 2023-09-07 11:08 | disposition home health service (06) ==
LOC: 3E 07:28 → ASU 07:28